=== PATIENT | male | born 1960 | race Caucasian/White ===

== ENCOUNTER 2024-07-21 12:23 | Outpatient (CLI) | payer BC, SELFPAY ==
--- NOTE | 2024-07-21 12:15 | RT.EKG_ITS ---
APPROVED REPORT Exam: Resting ECG Reason for Exam: Shortness of breath Patient Location: O HR:110 bpm ECG Measurements Heart Rate 110 AXIS DC [id number] P [id number] QRSd 93 QRS 267 QT 334 T [id number] QTc 452 Conclusion Atrial fibrillation.. Abnormal R-wave progression, late transition...QRS area<0 in V5/V6 Inferior infarct, old...Q >35mS, II III aVF Lateral leads are also involved...lat Q or ST-T abnormalities
== END 2024-07-21 12:24 | disposition home or self-care (01) ==
PROVIDERS: Visit Provider Physician Assistant
DX: R07.89 Other chest pain (principal); R06.02 Shortness of breath
CPT/HCPCS: 93010

== ENCOUNTER 2024-07-21 14:09 | Inpatient (IN) | payer BC, SELFPAY ==
[2024-07-21] VITALS (73 sets, daily range): BP systolic 116–163; BP diastolic 64–115; PULSE 55–158; RESP 10–37; TEMP 36.6–36.8; O2SAT 92–97
--- NOTE | 2024-07-21 14:00 | RT.EKG_ITS ---
APPROVED REPORT Exam: Resting ECG Reason for Exam: sob Patient Location: E HR:161 bpm ECG Measurements Heart Rate 161 AXIS KS [id number] P [id number] QRSd 76 QRS 261 QT 293 T 87 QTc 480 Conclusion Atrial fibrillation with rapid V-rate...A-rate 461 Inferior infarct, old...Q >35mS, II III aVF Consider anterior infarct...Q >30mS in V2-V5 Atrial fibrillation with rapid ventricular response and rate 161. Normal axis. No ST segment abnorm alities. T wave flattening diffusely. Low voltage. Compared to prior from today at urgent care T w ave inversions left chest wall leads have improved. Rate has increased. No acute injury pattern.
--- NOTE | 2024-07-21 14:20 | W.ED.GENAD ---
Discharge Plan Disposition Patient Disposition: Admit to [facility] Discharge Details Clinical Impression: Atrial fibrillation with RVR, Acute HFrEF (heart failure with reduced ejection fraction), Adrenal nodule Primary Care Provider: Unknown,Unknown ED Provider: Alok Lainez [employer] Meds and New Rx's Prescriptions: No Action ibuprofen 200 MG capsule 400 mg PO daily prn triamcinolone acetonide 15 GM cream 1 appful Topical BID PRNQty: 45 Rx Instructions: apply to inguinal rash BID prn but not longer than 3 days at a time sildenafil [Viagra] 100 mg tablet 100 mg PO DAILY MDD 100 PRN (Reason: sexual activity) Qty: 30 4RF aspirin 325 mg tablet 81 mg PO DAILY HPI General Date/Time Provider Initiated Documentation: 07/21/24 14:11. HPI Narrative: MDM This is a tachycardic but normothermic 64-year-old male with shortness of breath worsening over the past several months with A-fib RVR but no signs of acute heart failure for which patient will require echocardiogram D-dimer to assess for risk of PE and likely hospitalization. No pain out of proportion to suggest necrotizing soft tissue infection. Patient does have an elevated BMI and is certainly possible that he could have obstructive sleep apnea. Will place patient on a CIWA protocol given history of daily alcohol use which certainly makes him at increased risk for dilated cardiomyopathy. At bedside ultrasound his ejection fraction appears to be moderately reduced though interpretation is difficult secondary to his A-fib with RVR. He is relatively low risk for PE so obtain a D-dimer. I considered sepsis however the patient has not had any fevers productive cough dysuria or frequency so I did not obtain blood cultures treat empirically with IV antibiotics nor check a lactate. Patient denies black or bloody stools, suspicion for GI bleed is low however will obtain a CBC. No B symptoms such as unintentional weight loss night sweats to suggest increased risk for malignancy. Mild bilateral lower extremity pitting edema concerning for the possibility of acute heart failure. Will defer anticoagulation pending D-dimer results. No wheezes to suggest bronchoconstriction. No focal lung abnormalities to suggest pneumonia. PE is certainly a possibility. Dysrhythmia certainly possible. Will obtain troponin to assess for ACS. Not hypotensive to suggest tamponade. No positional component to suggest pericarditis. No clinical signs of SVC syndrome so did not feel the patient required a CT scan of his chest. No stridor to suggest anaphylaxis. No trauma to suggest pneumothorax. No recent salicylate use to suggest salicylate toxicity. No generator exposure to suggest carbon monoxide poisoning. 3:15 PM Reassuring initial troponin 41 ng/L. proBNP mildly elevated at 5400. CBC lacks anemia thrombocytopenia and leukocytosis. There is macrocytosis. Comprehensive metabolic panel showing mild LFT abnormalities. Mild hyperglycemia but no anion gap normal bicarbonate??not consistent with DKA. Normal renal function. Normal magnesium. 4:20 PM Patient was found on echocardiogram to have a reduced EF estimated to be approximately 31 to 33%. Given reduced EF which shortness of breath we will trial diuretics in the emergency department with 40 mg IV furosemide and reach out to the hospitalist team for hospitalization. Given A-fib with RVR will also provide 10 mg of diltiazem for rate control following CT scan. Will also treat with subcutaneous enoxaparin at 1 mg/kg given unknown onset of A-fib RVR. 4:40 PM I spoke with Dr. Squires from the hospitalist team who graciously agreed to accept patient for hospitalization. Patient does not need a nicardipine drip. Will push 1 dose of 10 mg diltiazem in the emergency department if the patient still has A-fib RVR. His rates were in the high teens to low 120s. 4:[address] angiogram of the patient's chest he had no evidence of PE nor aortic dissection. He did have small bilateral pleural effusions. He did have a left adrenal nodule about which I made him aware of radiology recommendation for nonemergent MRI which he will likely benefit from as an outpatient.Will give him oral metoprolol for rate control at 12.5 mg given that his rates are in the low 1 teens now. Chronic conditions affecting the care of the patient: Elevated BMI History obtained from an outside historian: N/A External record review: N/A Diagnostic interpretations performed by me: Per my independent interpretation chest x-ray shows: No acute cardiopulmonary process Per my independent interpretation EKG shows: Atrial fibrillation with rapid ventricular response and rate 161. Normal axis. No ST segment abnormalities. T wave flattening diffusely. Low voltage. Compared to prior from today at urgent care T wave inversions left chest wall leads have improved. Rate has increased. No acute injury pattern. ]Medications: N/A Social determinants of health affecting disposition: N/A Management discussed with: Hospitalist Treatment/interventions considered: N/A Response to therapies provided: N/A HPI This is a 64-year-old male with history of elevated BMI on 81 mg aspirin daily right emergency department via private vehicle in setting of shortness of breath for the past 6 months. Patient went to urgent care today was directed to the emergency department in setting of atrial fibrillation. Patient notes mild lower extremity swelling but no chest pain. No unintentional weight gain. No recent falls. Patient drinks 6 beers per day. He denies history of withdrawal but has not recently stopped drinking. No history of seizures or hospitalizations following alcohol. No fevers. No abdominal pain. Patient has a history of psoriasis. No weakness no headaches. Exam General: Well-appearing in no acute distress speaking in complete sentences. Head: Normocephalic, atraumatic. Eye: Extraocular eye movements intact. No conjunctival injection. No scleral icterus. Ear, nose, mouth, throat: Grossly normal inspection. Normal voice, handling secretions normally. Neck: Trachea midline. Cardiovascular: Well-perfused distal extremities. Rapid regular rate. Respiratory: Nonlabored respiration. Decreased left-sided breath sounds Gastrointestinal: Nondistended abdomen. Distended abdomen soft. Diastases recti. Musculoskeletal: No significant lower extremity pitting edema. Moving all 4 extremities spontaneously. Skin: Normal for age and race, grossly normal temperature and turgor. No acute rash. Neurologic: Alert and appropriate, no apparent acute deficits. GCS 15. Psychiatric: Mood and manner are appropriate. Grooming and personal hygiene are appropriate. Related Data Home Medications ?Medication ?Instructions ?Recorded ?Confirmed ibuprofen 200 mg capsule 400 mg PO daily prn 04/05/17 07/21/24 triamcinolone acetonide 0.1 % 1 appful topical BID PRN #45 grams 04/05/17 07/21/24 topical cream sildenafil 100 mg tablet (Viagra) 100 mg PO DAILY PRN sexual 02/26/20 07/21/24 activity #30 tab-caps aspirin 325 mg tablet 81 mg PO DAILY 07/21/24 07/21/24 Previous Rx's ?Medication ?Instructions ?Recorded sildenafil 100 mg tablet (Viagra) 100 mg PO DAILY PRN sexual 02/26/20 activity #30 tab-caps Allergies Allergy/AdvReac Type Severity Reaction Status Date / Time No Known Allergies Allergy Unverified 07/21/24 11:04 Medical Decision Making Quality:SDOH Health Related Social Needs: No Data to Display Critical Care Time Critical Care Time Critical Care Time: Yes Total Critical Care Time: 60 Attestation: A-fib RVR acute heart failure PFSH All Active Problems (Updated 07/21/24 @ 16:57 by Alok Lainez MD) Adrenal nodule (Acute) Acute HFrEF (heart failure with reduced ejection fraction) (Acute) Atrial fibrillation with RVR (Acute) Family History Mother No problems noted. Father Heart disease VALVE REPLACEMENT Sister Neoplasm CERVICAL Brother No problems noted. Brother No problems noted. Brother No problems noted. Brother No problems noted. Brother No problems noted. Social History Smoking risk assessment performed?: No Alcohol Intake: current Alcohol Intake frequency: 3 or more drinks per day Alcohol type: beer Drug use: Never Substance use type: does not use Do you feel safe at home: Yes Do you feel safe in your relationship?: Yes POCUS Exam (ED) Limited Cardiac Exam DATE OF EXAM: 07/21/24 TIME OF EXAM: 15:04 PROVIDER THAT PERFORMED THE STUDY: Alok Lainez IS THIS A REPEAT EXAM DURING THIS ENCOUNTER: no REASON FOR EXAM: Dyspnea VISUALIZED STRUCTURES: Four Chambers, Left ventricle, LVOT and Other structure: Lungs VIEW OBTAINED: Apical 4-Chamber, Parasternal long-axis and Subxiphoid PERTINENT FINDINGS/IMPRESSION: LV dysfunction; No pericardial effusion and No RV dilation DIFFERENTIAL DIAGNOSES: Aortic outflow track less than 4 cm, moderate squeeze, RV less than LV, no significant pericardial effusion. Several right-sided B-lines Exam complete
--- NOTE | 2024-07-21 14:30 | DI.RAD_ITS ---
Exam(s) XR PORTABLE CHEST AP EXAM: XR PORTABLE CHEST AP CLINICAL HISTORY: Shortness of breath TECHNIQUE: 2D digital imaging was performed. COMPARISON: No exams were available for comparison FINDINGS: Exam is limited by under penetration particularly at the lung bases. LUNGS: Clear. Left lung base not well seen. Some blunting at the left at costophrenic angle could in dicate small effusion. Mildly increased densities at the lung bases could represent atelectasis vers us infiltrates. HEART: Mildly enlarged. AORTA: Normal diameter. BONES: Unremarkable for age. Soft tissues: Unremarkable. IMPRESSION: Limited exam due to under penetration at the lung bases. There is a probable small left pleural effu giuseppe. Basilar infiltrates are not excluded. DATA REPOSITORY: RADIATION DOSE DELIVERED:
[2024-07-21 14:46] LABS: Abs Immature Grans 0.03 10^3/uL (0.0-0.06); Absolute Basophil Count 0.04 10^3/uL (0.0-0.2); Absolute Eosinophil Count 0.04 10^3/uL (0.0-0.7); Absolute Lymphocyte Count 1.34 10^3/uL (1.2-3.4); Absolute Monocyte Count 0.61 10^3/uL (0.1-0.8); Absolute Neutrophil Count 6.21 10^3/uL (1.2-6.7); Basophils % 0.5 %; Eosinophils % 0.5 %; HCT 46.7 % (40.0-50.0); HGB 15.8 g/dL (13.5-17.5); Immature Grans % 0.4 %; Lymphocytes % 16.2 %; MCH 33.2 pg (27.0-33.0); MCHC 33.8 % (32.0-36.0); MCV 98 fL (80-95); MPV 8.4 fL (8.0-11.0); Monocytes % 7.4 %; Platelet Count 248 10^3/uL (130-400); RBC 4.76 10^6/uL (4.36-5.78); RDW-SD 46.5 fL; WBC 8.27 10^3/uL (4.4-10.8)
[2024-07-21 15:11] LABS: ALT 70 U/L (16-63); AST 41 U/L (15-37); Albumin 3.3 g/dL (3.4-5.0); Alkaline Phosphatase 97 U/L (46-116); Anion Gap 9.8 mmol/L (3-11); BUN 15 mg/dL (7-18); Bilirubin, Total 1.07 mg/dL (0.2-1.0); CO2 25.2 mmol/L (21.0-32.0); Calcium 9.3 mg/dL (8.5-10.1); Chloride 104 mmol/L (98-107); Glucose 162 mg/dL (74-106); Magnesium 2.1 mg/dL (1.8-2.4); NT-proBNP 5407 pg/mL (<300); Potassium 3.8 mmol/L (3.5-5.1); Sodium 139 mmol/L (136-145); Total Protein 7.6 g/dL (6.4-8.2); Troponin I 41 ng/L (<or=76)
[2024-07-21 15:26] LABS: D-Dimer 1867 ng/mlFEU (<500)
[2024-07-21 15:47] LABS: Source Nasal/Nares
[2024-07-21] MEDS: Normal Saline - Diluent 50 ML VIAL IJ (16:30)
[2024-07-21] MEDS: Omnipaque 350 MG/ML 100 ML BTL IJ (16:31)
--- NOTE | 2024-07-21 16:33 | DI.CT_ITS ---
Exam(s) CT CHEST PE CTA EXAM: CT CHEST PE CTA CLINICAL HISTORY: sob. TECHNIQUE: Imaging Protocol: Axial CT angiography was performed with multi-slice acquisition and mu lti-planar and/or 3D reconstructions. CONTRAST MATERIAL: Intravenous: Omnipaque 350 contrast volume:100 mL COMPARISON: CR XR PORTABLE CHEST AP from 07/21/2024 FINDINGS: Tracheobronchial tree: Patent where visualized. No bronchiectasis. Pulmonary parenchyma: There is atelectasis seen in the lung bases. No focal consolidating infiltrate s are seen. No architectural distortion. Pulmonary Arteries: No evidence of filling defect to suggest pulmonary emboli. Mediastinum and Ada: No dominant adenopathy or fluid collection. The esophagus is unremarkable. Visualized thyroid gland: Unremarkable. Pleura: There are small bilateral pleural effusions, right greater than left. No pneumothorax is pre sent. Heart: Mild cardiomegaly. No coronary artery calcifications are seen. No pericardial effusion. No e vidence of right heart strain. Aorta: Thoracic aorta non-dilated. Due to the timing of the bolus, the thoracic aorta is not well opa cified. Atherosclerotic calcification is present. Upper abdomen: There is a small amount of abdominal ascites. There is a 2.5 x 3.3 cm left adrenal n odule. Soft tissues: Unremarkable. Bones: Within normal limits for the patient's age. IMPRESSION: 1. No evidence of a pulmonary embolism or thoracic aortic aneurysm. 2. Small bilateral pleural effusions, right greater than left. 3. Bilateral basilar atelectasis. 4. 2.5 x 3.3 cm left adrenal nodule. Nonemergent follow-up MRI of the adrenal gland without and with contrast is recommended for further evaluation. 5. Small amount of abdominal ascites. Unexpected findings RADIATION DOSE DELIVERED: 122.22mGy.cm Total DLP DATA REPOSITORY: All CT scans at this facility are submitted to the National Radiology Data Registry (NRDR) Dose Index Registry (DIR) with the [employer] (A[employer]). RADIATION OPTIMIZATION: All CT scans at this facility use at least one of these dose optimization te chniques: automated exposure control; mA and/or kV adjustment per patient size (includes targeted exa ms where dose is matched to clinical indication); or iterative reconstruction.
[2024-07-21 16:38] LABS: COVID-19 PCR Negative (Negative)
[2024-07-21] MEDS: Enoxaparin 100 MG/ML SYR SC (16:44)
[2024-07-21] MEDS: Furosemide 40 MG/4 ML VIAL IVP (16:45)
[2024-07-21] MEDS: Metoprolol 12.5 MG TAB PO (16:49)
--- NOTE | 2024-07-21 17:54 | W.PC.ACHO ---
Registration Status: Primary Language: Preferred Language: ED Information & Data Chief Complaint SOB 07/21/24 14:41 Chief Complaint SOB 07/21/24 14:12 Triage Note patient with sob for 6 mths, 07/21/24 14:12 seen at urgent care today for same and was told he was in afib. no cp. states his ankles are slightly swollen. Most Recent Vital Signs Temperature 36.7 C 07/21/24 14:41 Temperature Source Oral 07/21/24 14:41 Pulse 71 07/21/24 17:39 Pulse 116 H 07/21/24 17:40 Respiratory Rate 27 H 07/21/24 17:40 Respiratory Effort Short of Breath, Labored 07/21/24 14:41 Respiratory Depth Shallow 07/21/24 14:41 Respiratory Pattern Tachypnea 07/21/24 15:05 Blood Pressure 137/99 H 07/21/24 17:39 Blood Pressure Mean 112 07/21/24 17:39 Blood Pressure Position Sitting 07/21/24 14:12 Pulse Oximetry 94 07/21/24 17:40 Oxygen Delivery Method Room Air 07/21/24 14:41 Oxygen Flow Rate 0 07/21/24 14:12 Pain Level 0 07/21/24 14:41 Allergies No Known Allergies Allergy (Unverified 07/21/24 11:04) Active Medications Generic Name Dose Route Start Last Admin Trade Name Yannickq PRN Reason Stop Dose Admin Iohexol 100 ml 07/21/24 16:45 07/21/24 16:31 Omnipaque 350 Mg/Ml 100 Ml Btl IJ 08/20/24 23:59 100 ml DIRECTED LINDA Administration Sodium Chloride 50 ml 07/21/24 16:30 07/21/24 16:30 Normal Saline - Diluent 50 Ml Vial IJ 50 ml .FOR DI USE LINDA Administration Diet Orders Category Date Time Status Heart Healthy Eating [DIET] Nutrition 07/21/24 Dinner Active Diagnostics 07/21/24 07/21/24 07/21/24 Range/Units 17:38 15:38 15:30 WBC (4.4-10.8) 10^3/uL RBC (4.36-5.78) 10^6/uL Hgb (13.5-17.5) g/dL Hct (40.0-50.0) % MCV (80-95) fL MCH (27.0-33.0) pg MCHC (32.0-36.0) % RDW (11.8-14.1) % Plt Count (130-400) 10^3/uL MPV (8.0-11.0) fL Immature Gran % % Neutrophils % % Lymphocytes % % Monocytes % % Eosinophils % % Basophils % % Nucleated RBC % (0.0-0.3) % Absolute Neutrophils (1.2-6.7) 10^3/uL Absolute Lymphocytes (1.2-3.4) 10^3/uL Absolute Monocytes (0.1-0.8) 10^3/uL Absolute Eosinophils (0.0-0.7) 10^3/uL Absolute Basophils (0.0-0.2) 10^3/uL D-Dimer (<500) ng/mlFEU Sodium Potassium Chloride Carbon Dioxide Anion Gap BUN Creatinine Est GFR (CKD-EPI 2020) Glucose Calcium Magnesium Total Bilirubin AST ALT Alkaline Phosphatase Troponin I Pending Cancelled (<or=76) ng/L NT-Pro-B Natriuret Pep (<300) pg/mL Total Protein Albumin COVID-19 Source Nasal/Nares SARS-CoV-2 (PCR) Negative (Negative) 07/21/24 07/21/24 07/21/24 Range/Units 14:36 14:36 14:36 WBC (4.4-10.8) 10^3/uL RBC (4.36-5.78) 10^6/uL Hgb (13.5-17.5) g/dL Hct (40.0-50.0) % MCV (80-95) fL MCH (27.0-33.0) pg MCHC (32.0-36.0) % RDW (11.8-14.1) % Plt Count (130-400) 10^3/uL MPV (8.0-11.0) fL Immature Gran % % Neutrophils % % Lymphocytes % % Monocytes % % Eosinophils % % Basophils % % Nucleated RBC % (0.0-0.3) % Absolute Neutrophils (1.2-6.7) 10^3/uL Absolute Lymphocytes (1.2-3.4) 10^3/uL Absolute Monocytes (0.1-0.8) 10^3/uL Absolute Eosinophils (0.0-0.7) 10^3/uL Absolute Basophils (0.0-0.2) 10^3/uL D-Dimer (<500) ng/mlFEU Sodium Potassium Chloride Carbon Dioxide Anion Gap BUN Creatinine Est GFR (CKD-EPI 2020) Glucose Calcium Magnesium Total Bilirubin AST ALT Alkaline Phosphatase 97 Troponin I 41 (<or=76) ng/L NT-Pro-B Natriuret Pep 5407 H (<300) pg/mL Total Protein 7.6 Cancelled Albumin 3.3 L Cancelled COVID-19 Source SARS-CoV-2 (PCR) (Negative) 07/21/24 07/21/24 07/21/24 Range/Units 14:36 14:36 14:36 WBC (4.4-10.8) 10^3/uL RBC (4.36-5.78) 10^6/uL Hgb (13.5-17.5) g/dL Hct (40.0-50.0) % MCV (80-95) fL MCH (27.0-33.0) pg MCHC (32.0-36.0) % RDW (11.8-14.1) % Plt Count (130-400) 10^3/uL MPV (8.0-11.0) fL Immature Gran % % Neutrophils % % Lymphocytes % % Monocytes % % Eosinophils % % Basophils % % Nucleated RBC % (0.0-0.3) % Absolute Neutrophils (1.2-6.7) 10^3/uL Absolute Lymphocytes (1.2-3.4) 10^3/uL Absolute Monocytes (0.1-0.8) 10^3/uL Absolute Eosinophils (0.0-0.7) 10^3/uL Absolute Basophils (0.0-0.2) 10^3/uL D-Dimer (<500) ng/mlFEU Sodium Potassium Chloride Carbon Dioxide Anion Gap BUN Creatinine Est GFR (CKD-EPI 2020) Glucose Calcium Magnesium Total Bilirubin 1.07 H AST 41 H Cancelled ALT 70 H Cancelled Alkaline Phosphatase Cancelled Troponin I (<or=76) ng/L NT-Pro-B Natriuret Pep (<300) pg/mL Total Protein Albumin COVID-19 Source SARS-CoV-2 (PCR) (Negative) 07/21/24 07/21/24 07/21/24 Range/Units 14:36 14:36 14:36 WBC (4.4-10.8) 10^3/uL RBC (4.36-5.78) 10^6/uL Hgb (13.5-17.5) g/dL Hct (40.0-50.0) % MCV (80-95) fL MCH (27.0-33.0) pg MCHC (32.0-36.0) % RDW (11.8-14.1) % Plt Count (130-400) 10^3/uL MPV (8.0-11.0) fL Immature Gran % % Neutrophils % % Lymphocytes % % Monocytes % % Eosinophils % % Basophils % % Nucleated RBC % (0.0-0.3) % Absolute Neutrophils (1.2-6.7) 10^3/uL Absolute Lymphocytes (1.2-3.4) 10^3/uL Absolute Monocytes (0.1-0.8) 10^3/uL Absolute Eosinophils (0.0-0.7) 10^3/uL Absolute Basophils (0.0-0.2) 10^3/uL D-Dimer (<500) ng/mlFEU Sodium Potassium Chloride Carbon Dioxide Anion Gap BUN Creatinine Est GFR (CKD-EPI 2020) Glucose 162 H Calcium 9.3 Cancelled Magnesium 2.1 Cancelled Total Bilirubin Cancelled AST ALT Alkaline Phosphatase Troponin I (<or=76) ng/L NT-Pro-B Natriuret Pep (<300) pg/mL Total Protein Albumin COVID-19 Source SARS-CoV-2 (PCR) (Negative) 07/21/24 07/21/24 07/21/24 Range/Units 14:36 14:36 14:36 WBC (4.4-10.8) 10^3/uL RBC (4.36-5.78) 10^6/uL Hgb (13.5-17.5) g/dL Hct (40.0-50.0) % MCV (80-95) fL MCH (27.0-33.0) pg MCHC (32.0-36.0) % RDW (11.8-14.1) % Plt Count (130-400) 10^3/uL MPV (8.0-11.0) fL Immature Gran % % Neutrophils % % Lymphocytes % % Monocytes % % Eosinophils % % Basophils % % Nucleated RBC % (0.0-0.3) % Absolute Neutrophils (1.2-6.7) 10^3/uL Absolute Lymphocytes (1.2-3.4) 10^3/uL Absolute Monocytes (0.1-0.8) 10^3/uL Absolute Eosinophils (0.0-0.7) 10^3/uL Absolute Basophils (0.0-0.2) 10^3/uL D-Dimer (<500) ng/mlFEU Sodium Potassium Chloride Carbon Dioxide Anion Gap BUN 15 Creatinine 1.0 Cancelled Est GFR (CKD-EPI 2020) 85.10 Cancelled Glucose Cancelled Calcium Magnesium Total Bilirubin AST ALT Alkaline Phosphatase Troponin I (<or=76) ng/L NT-Pro-B Natriuret Pep (<300) pg/mL Total Protein Albumin COVID-19 Source SARS-CoV-2 (PCR) (Negative) 07/21/24 07/21/24 07/21/24 Range/Units 14:36 14:36 14:36 WBC (4.4-10.8) 10^3/uL RBC (4.36-5.78) 10^6/uL Hgb (13.5-17.5) g/dL Hct (40.0-50.0) % MCV (80-95) fL MCH (27.0-33.0) pg MCHC (32.0-36.0) % RDW (11.8-14.1) % Plt Count (130-400) 10^3/uL MPV (8.0-11.0) fL Immature Gran % % Neutrophils % % Lymphocytes % % Monocytes % % Eosinophils % % Basophils % % Nucleated RBC % (0.0-0.3) % Absolute Neutrophils (1.2-6.7) 10^3/uL Absolute Lymphocytes (1.2-3.4) 10^3/uL Absolute Monocytes (0.1-0.8) 10^3/uL Absolute Eosinophils (0.0-0.7) 10^3/uL Absolute Basophils (0.0-0.2) 10^3/uL D-Dimer (<500) ng/mlFEU Sodium Potassium Chloride 104 Carbon Dioxide 25.2 Cancelled Anion Gap 9.8 Cancelled BUN Cancelled Creatinine Est GFR (CKD-EPI 2020) Glucose Calcium Magnesium Total Bilirubin AST ALT Alkaline Phosphatase Troponin I (<or=76) ng/L NT-Pro-B Natriuret Pep (<300) pg/mL Total Protein Albumin COVID-19 Source SARS-CoV-2 (PCR) (Negative) 07/21/24 07/21/24 07/21/24 Range/Units 14:36 14:36 14:36 WBC 8.27 (4.4-10.8) 10^3/uL RBC 4.76 (4.36-5.78) 10^6/uL Hgb 15.8 (13.5-17.5) g/dL Hct 46.7 (40.0-50.0) % MCV 98 H (80-95) fL MCH 33.2 H (27.0-33.0) pg MCHC 33.8 (32.0-36.0) % RDW 13.0 (11.8-14.1) % Plt Count 248 (130-400) 10^3/uL MPV 8.4 (8.0-11.0) fL Immature Gran % 0.4 % Neutrophils % 75.0 % Lymphocytes % 16.2 % Monocytes % 7.4 % Eosinophils % 0.5 % Basophils % 0.5 % Nucleated RBC % 0.0 (0.0-0.3) % Absolute Neutrophils 6.21 (1.2-6.7) 10^3/uL Absolute Lymphocytes 1.34 (1.2-3.4) 10^3/uL Absolute Monocytes 0.61 (0.1-0.8) 10^3/uL Absolute Eosinophils 0.04 (0.0-0.7) 10^3/uL Absolute Basophils 0.04 (0.0-0.2) 10^3/uL D-Dimer 1867 H (<500) ng/mlFEU Sodium 139 Cancelled Potassium 3.8 Cancelled Chloride Cancelled Carbon Dioxide Anion Gap BUN Creatinine Est GFR (CKD-EPI 2020) Glucose Calcium Magnesium Total Bilirubin AST ALT Alkaline Phosphatase Troponin I (<or=76) ng/L NT-Pro-B Natriuret Pep (<300) pg/mL Total Protein Albumin COVID-19 Source SARS-CoV-2 (PCR) (Negative) Intake and Output - 24 Hour Total 07/21/24 14:08 thru 07/21/24 17:42 Output Total 1350 Balance -1350 Weight 105.35 kg Output: Urine 1350 Falls Risk Assessment History of Falls No History 07/21/24 14:41 Contributing Factors No Factors 07/21/24 14:41 Ambulatory Aids Independent 07/21/24 14:41 Tubes/Lines None 07/21/24 14:41 Gait Evaluation No gait disturbance 07/21/24 14:41 Cognition No cognitive impairment 07/21/24 14:41 Fall Total Score 0 07/21/24 14:41 Level of Risk Standard/Low Risk 07/21/24 14:41 v v v v v v v v v Sending and/or Receiving Nurses: Please use comment section below to note any information pertinent to the patient hand-off not included above. Information / Comments: Report received from: Leena 2+ lt edema 1350 urine out 12.5 metop po lasiz 40 up indep urinal new onset afib?
[2024-07-21 18:10] LABS: Troponin I 43 ng/L (<or=76)
[2024-07-21] MEDS: MULTIVITAMIN 10 ML, THIAMINE 100 MG, FOLIC ACID 1 MG in DEXTROSE 5%-0.45% SALINE 1,000 ML 42 ML IV (18:43)
--- NOTE | 2024-07-21 19:16 | W.PM.HP.N ---
Date of service: 07/21/24 Time of Service: 17:15 Assessment and Plan Assessment and plan (1) Acute HFrEF (heart failure with reduced ejection fraction): Status: Acute Assessment and plan: Continue diuresis Await echocardiogram final read (2) Atrial fibrillation with RVR: Status: Acute Assessment and plan: Heart rate is not well-controlled with the oral metoprolol Will start diltiazem drip. Transferred patient to the intensive care unit for close monitoring and continue cardiac monitoring (3) Alcohol abuse: Status: Chronic Assessment and plan: CIWA scoring per protocol Benzodiazepine alcohol withdrawal protocol enacted Patient is concerned he may have trouble since he has not gone without a generous amount of alcohol in a very long time. Patient is placed on supplemental vitamins via IV infusion Will continue on oral folate supplementation and B complex. (4) Poor dentition: Status: Acute Assessment and plan: Discussed with patient Recommend outpatient dental evaluation as dental and gum health is associated with heart health (5) Umbilical hernia without obstruction and without gangrene: Status: Acute Assessment and plan: Surgical evaluation as an outpatient. No urgency at this time. (6) Morbid obesity: Status: Acute Assessment and plan: Patient may possibly have sleep apnea which may be contributing to caloric intake (7) Bilateral leg edema: Status: Acute Assessment and plan: Continue diuresis Patient will remain at bedrest edema may worsen Continue DVT prophylaxis with once daily low molecular weight heparin (8) On deep vein thrombosis (DVT) prophylaxis: Status: Acute Assessment and plan: Low molecular weight heparin once daily (9) Hyperglycemia: Status: Acute Assessment and plan: Will check hemoglobin A1c to evaluate for occult diabetes (10) Elevated d-dimer: Status: Acute Assessment and plan: CT pulmonary angiogram was negative for signs of pulmonary emboli. (11) Adrenal nodule: Status: Acute Assessment and plan: Plan for evaluation as outpatient with possible MRI and appropriate consultation History of Present Illness History of Present Illness Chief Complaint: breathlessness Narrative: Patient is a 64-year-old male who was not seen in physician in over 10 years by his report. He has been experiencing progressive breathlessness over the past month and states that today, he was unable to even tie his shoes without losing his breath. He is unable to walk any length of distance without having to stop to catch his breath. He denies any fevers or chills or productive sputum. This morning, he felt he could not go to work and he came to the emergency department. Emergency department, he was evaluated and found to have atrial fibrillation with rapid ventricular response. Was not uncommon for his heart rate to rise up into the 160s to 180s. If he stands up or moves or exerts himself, his heart rate increases. He was given oral metoprolol in the emergency department. This did not seem to have an effect on his heart rate after about 2 hours post dosing of the oral metoprolol. He was given intravenous Lasix 40 mg and experienced a significant diuresis. This did not symptomatically improve his dyspnea however. He is concerned because every day he does not work he does not earn. 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 He does minimal amount of walking during this work. He frequently drives 1 hour to 2-1/2 hours for his job. Recently, he has been working in [place]. He takes no outpatient medications at this time and he does not do illicit drugs. He does not smoke. He drinks a sixpack of Souza light every night. That is his routine. Every single night for as long as he can remember. He lives alone. He has no pets. He has not traveled anywhere recently other than for work. He has not received COVID vaccination in the past and he has not knowingly had COVID. He thinks possibly he might of had COVID about a year ago because he says that his general health diminished greatly after he became sick a year ago. He has no known drug allergies. His surgical history is remarkable for bilateral inguinal hernia repairs, on 1 side he had a second repair. He has a do not know if mesh was involved. He also reports he has a new periumbilical hernia anteriorly. Past medical history is denied. He previously had been on ED medications. He has not had blood work in a long time, he has not seen a doctor in over 10 years. Family history his father had coronary artery disease and he had coronary artery bypass surgery twice dying from what was presumed to be a cerebral aneurysm after the second surgery at age 69 his mother is alive at age 88 and lives in [place] where the patient is originally from. He does not have an advanced directive The patient would like to be a full resuscitative effort should anything occur. Review of Systems Narrative: A 14 point review of systems was performed and negative except as noted below and in the HPI. All systems reviewed & are unremarkable except as noted in HPI and below PFSH All Active Problems (Updated 07/21/24 @ 19:34 by Jn Squires DO) Elevated d-dimer (Acute) Hyperglycemia (Acute) On deep vein thrombosis (DVT) prophylaxis (Acute) Bilateral leg edema (Acute) Morbid obesity (Acute) Umbilical hernia without obstruction and without gangrene (Acute) Poor dentition (Acute) Alcohol abuse (Chronic) Adrenal nodule (Acute) Acute HFrEF (heart failure with reduced ejection fraction) (Acute) Atrial fibrillation with RVR (Acute) Family History Mother No problems noted. Father Heart disease VALVE REPLACEMENT Sister Neoplasm CERVICAL Brother No problems noted. Brother No problems noted. Brother No problems noted. Brother No problems noted. Brother No problems noted. Social History Smoking risk assessment performed?: No Alcohol Intake: current Alcohol Intake frequency: 3 or more drinks per day Alcohol type: beer Drug use: Never Substance use type: does not use Do you feel safe at home: Yes Do you feel safe in your relationship?: Yes Meds Allergies and Home Medications Allergies Allergy/AdvReac Type Severity Reaction Status Date / Time No Known Allergies Allergy Unverified 07/21/24 11:04 Home Medications ?Medication ?Instructions ?Recorded ?Confirmed ?Type ibuprofen 200 mg capsule 400 mg PO daily prn 04/05/17 07/21/24 History triamcinolone acetonide 0.1 % 1 appful topical BID PRN #45 grams 04/05/17 07/21/24 History topical cream sildenafil 100 mg tablet (Viagra) 100 mg PO DAILY PRN sexual 02/26/20 07/21/24 Rx activity #30 tab-caps aspirin 325 mg tablet 81 mg PO DAILY 07/21/24 07/21/24 History Exam Narrative Exam Narrative: Patient is alert and oriented x 3 and in no acute distress HEENT: Neck supple, MM pink and moist, conjunctiva non-injected, sclera non-icteric, Pupils equal and reactive to light symmetrically, no JVD, no A waves. No thyromegaly. No carotid bruit. Patient is missing his maxillary incisors and canine teeth. He has multiple molars with active caries at this time. He has a small posterior airway possibly class III-IV CHEST: Bilaterally symmetrical with inspiration and expiration. No use of accessory muscles of respiration. No nasal flaring. RESP: Distant breath sounds secondary to body habitus, bilateral bibasilar crackles noted no rhonchi or wheeze, no pleural friction rub, no post-tussive crackles or apical rales. COR: Distant tones and difficult to appreciate, RRR without murmur, normal S1, S2, no rub or gallop ABDOMEN: Obese grossly distended and mildly tympanitic, no peritoneal signs. Bowel sounds are active diffusely. There is a periumbilical defect which is easily reducible. Organomegaly cannot be defined due to body habitus, No abdominal bruit, no masses, no tenderness on deep abdominal palpation. G/U: deferred Rectal: deferred MUSCULOSKELETAL: Bilaterally symmetrical, no muscle belly tenderness or mass DERMIS: Skin warm and dry, no ulcers or rashes, EXTREMITIES: No cyanosis, clubbing but 3+ pitting edema in the lower extremity bilaterally. NEUROLOGICAL: Cranial nerves intact II-XII without notable deficit, No peripheral neurosensory or motor deficits noted. LYMPH: No anterior or posterior cervical, no supraclavicular, No axillary, no epitrochlear or femoral lymphadenopathy. Results Imaging CT scan - chest: image reviewed CT scan - pelvis: image reviewed Additional studies: CTPA unremarkable for pulmonary emboli, adrenal nodule noted Cardiac echo obtained, results pending EKG: image reviewed Labs 07/21/24 14:36 07/21/24 14:36 Labs: Laboratory Results - last 24 hr 07/21/24 07/21/24 07/21/24 14:36 14:36 14:36 WBC 8.27 RBC 4.76 Hgb 15.8 Hct 46.7 MCV 98 H MCH 33.2 H MCHC 33.8 RDW 13.0 Plt Count 248 MPV 8.4 Immature Gran % 0.4 Neutrophils % 75.0 Lymphocytes % 16.2 Monocytes % 7.4 Eosinophils % 0.5 Basophils % 0.5 Nucleated RBC % 0.0 Absolute Neutrophils 6.21 Absolute Lymphocytes 1.34 Absolute Monocytes 0.61 Absolute Eosinophils 0.04 Absolute Basophils 0.04 D-Dimer 1867 H Sodium Cancelled 139 Potassium Cancelled 3.8 Chloride Cancelled Carbon Dioxide Anion Gap BUN Creatinine Est GFR (CKD-EPI 2020) Glucose Calcium Magnesium Total Bilirubin AST ALT Alkaline Phosphatase Troponin I NT-Pro-B Natriuret Pep Total Protein Albumin COVID-19 Source SARS-CoV-2 (PCR) 07/21/24 07/21/24 07/21/24 14:36 14:36 14:36 WBC RBC Hgb Hct MCV MCH MCHC RDW Plt Count MPV Immature Gran % Neutrophils % Lymphocytes % Monocytes % Eosinophils % Basophils % Nucleated RBC % Absolute Neutrophils Absolute Lymphocytes Absolute Monocytes Absolute Eosinophils Absolute Basophils D-Dimer Sodium Potassium Chloride 104 Carbon Dioxide Cancelled 25.2 Anion Gap Cancelled 9.8 BUN Cancelled Creatinine Est GFR (CKD-EPI 2020) Glucose Calcium Magnesium Total Bilirubin AST ALT Alkaline Phosphatase Troponin I NT-Pro-B Natriuret Pep Total Protein Albumin COVID-19 Source SARS-CoV-2 (PCR) 07/21/24 07/21/24 07/21/24 14:36 14:36 14:36 WBC RBC Hgb Hct MCV MCH MCHC RDW Plt Count MPV Immature Gran % Neutrophils % Lymphocytes % Monocytes % Eosinophils % Basophils % Nucleated RBC % Absolute Neutrophils Absolute Lymphocytes Absolute Monocytes Absolute Eosinophils Absolute Basophils D-Dimer Sodium Potassium Chloride Carbon Dioxide Anion Gap BUN 15 Creatinine Cancelled 1.0 Est GFR (CKD-EPI 2020) Cancelled 85.10 Glucose Cancelled Calcium Magnesium Total Bilirubin AST ALT Alkaline Phosphatase Troponin I NT-Pro-B Natriuret Pep Total Protein Albumin COVID-19 Source SARS-CoV-2 (PCR) 07/21/24 07/21/24 07/21/24 14:36 14:36 14:36 WBC RBC Hgb Hct MCV MCH MCHC RDW Plt Count MPV Immature Gran % Neutrophils % Lymphocytes % Monocytes % Eosinophils % Basophils % Nucleated RBC % Absolute Neutrophils Absolute Lymphocytes Absolute Monocytes Absolute Eosinophils Absolute Basophils D-Dimer Sodium Potassium Chloride Carbon Dioxide Anion Gap BUN Creatinine Est GFR (CKD-EPI 2020) Glucose 162 H Calcium Cancelled 9.3 Magnesium Cancelled 2.1 Total Bilirubin Cancelled AST ALT Alkaline Phosphatase Troponin I NT-Pro-B Natriuret Pep Total Protein Albumin COVID-19 Source SARS-CoV-2 (PCR) 07/21/24 07/21/24 07/21/24 14:36 14:36 14:36 WBC RBC Hgb Hct MCV MCH MCHC RDW Plt Count MPV Immature Gran % Neutrophils % Lymphocytes % Monocytes % Eosinophils % Basophils % Nucleated RBC % Absolute Neutrophils Absolute Lymphocytes Absolute Monocytes Absolute Eosinophils Absolute Basophils D-Dimer Sodium Potassium Chloride Carbon Dioxide Anion Gap BUN Creatinine Est GFR (CKD-EPI 2020) Glucose Calcium Magnesium Total Bilirubin 1.07 H AST Cancelled 41 H ALT Cancelled 70 H Alkaline Phosphatase Cancelled Troponin I NT-Pro-B Natriuret Pep Total Protein Albumin COVID-19 Source SARS-CoV-2 (PCR) 07/21/24 07/21/24 07/21/24 14:36 14:36 14:36 WBC RBC Hgb Hct MCV MCH MCHC RDW Plt Count MPV Immature Gran % Neutrophils % Lymphocytes % Monocytes % Eosinophils % Basophils % Nucleated RBC % Absolute Neutrophils Absolute Lymphocytes Absolute Monocytes Absolute Eosinophils Absolute Basophils D-Dimer Sodium Potassium Chloride Carbon Dioxide Anion Gap BUN Creatinine Est GFR (CKD-EPI 2020) Glucose Calcium Magnesium Total Bilirubin AST ALT Alkaline Phosphatase 97 Troponin I 41 NT-Pro-B Natriuret Pep 5407 H Total Protein Cancelled 7.6 Albumin Cancelled 3.3 L COVID-19 Source SARS-CoV-2 (PCR) 07/21/24 07/21/24 07/21/24 15:30 15:38 17:38 WBC RBC Hgb Hct MCV MCH MCHC RDW Plt Count MPV Immature Gran % Neutrophils % Lymphocytes % Monocytes % Eosinophils % Basophils % Nucleated RBC % Absolute Neutrophils Absolute Lymphocytes Absolute Monocytes Absolute Eosinophils Absolute Basophils D-Dimer Sodium Potassium Chloride Carbon Dioxide Anion Gap BUN Creatinine Est GFR (CKD-EPI 2020) Glucose Calcium Magnesium Total Bilirubin AST ALT Alkaline Phosphatase Troponin I Cancelled 43 NT-Pro-B Natriuret Pep Total Protein Albumin COVID-19 Source Nasal/Nares SARS-CoV-2 (PCR) Negative Last Vital Signs Temp 36.7 C 07/21/24 14:41 Pulse 64 07/21/24 18:19 Resp 19 07/21/24 18:50 BP 128/94 H 07/21/24 18:19 Pulse Ox 92 07/21/24 18:50 Time Spent Time spent with Patient: 55-74 minutes Time was spent: preparing to see the patient(eg.review tests), obtaining and/or reviewing separately otained hiistory, ordering medications,tests, procedures, referring, communicating with other health skin care therapist, counseling the patient and care coordination
[2024-07-21] MEDS: dilTIAZem 125 MG in Normal Saline 100 ML IV (19:30)
[2024-07-21 20:23] LABS: Hemoglobin A1C 5.8 % (<5.7)
[2024-07-21] MEDS: Miconazole 2% Topical Powder 85 GM BTL TP (20:36)
[2024-07-21] MEDS: Normal Saline Flush 10 ML SYR IVP (20:37)
[2024-07-21 20:40] LABS: Folate > 20.0 ng/mL (8.6-20.0)
--- NOTE | 2024-07-21 21:00 | NUR.NOTE ---
Nursing Note: Pt 20 beats of regular VT or narrow SVT, asymptomatic, pt on cardizem gtt at 5mg/hr , pt lying in bed, states feels fine, Dr. Zhang made aware, no orders given.
--- NOTE | 2024-07-21 21:46 | NUR.NOTE ---
Nursing Note: Vicente Rashid in to evaluate pt's rhythm strip, statespt had svt with aberrancy, no orders given.
[2024-07-22] VITALS (145 sets, daily range): BP systolic 103–163; BP diastolic 80–143; PULSE 50–148; RESP 4–36; TEMP 36.5–37; O2SAT 84–97
--- NOTE | 2024-07-22 03:00 | NUR.NOTE ---
Nursing Note: Pt complaining of right leg cramp pain 02/27, spoke to Dr Zhang, updated on pt's condition, orders given for tylenol. pt medicated, will monitor
[2024-07-22] MEDS: Acetaminophen 325 MG TAB 650 MG PO (03:01)
[2024-07-22 06:09] LABS: Abs Immature Grans 0.03 10^3/uL (0.0-0.06); Absolute Basophil Count 0.05 10^3/uL (0.0-0.2); Absolute Lymphocyte Count 1.63 10^3/uL (1.2-3.4); Absolute Monocyte Count 0.79 10^3/uL (0.1-0.8); Absolute Neutrophil Count 4.77 10^3/uL (1.2-6.7); Basophils % 0.7 %; Eosinophils % 1.4 %; HCT 44.9 % (40.0-50.0); HGB 14.9 g/dL (13.5-17.5); Immature Grans % 0.4 %; Lymphocytes % 22.1 %; MCH 33.3 pg (27.0-33.0); MCHC 33.2 % (32.0-36.0); MCV 100 fL (80-95); MPV 8.6 fL (8.0-11.0); Monocytes % 10.7 %; Neutrophils % 64.7 %; Platelet Count 221 10^3/uL (130-400); RBC 4.48 10^6/uL (4.36-5.78); RDW 13.3 % (11.8-14.1); RDW-SD 49.3 fL; WBC 7.37 10^3/uL (4.4-10.8)
[2024-07-22 06:26] LABS: ALT 51 U/L (16-63); AST 29 U/L (15-37); Albumin 2.9 g/dL (3.4-5.0); Alkaline Phosphatase 89 U/L (46-116); Anion Gap 7.6 mmol/L (3-11); BUN 19 mg/dL (7-18); Bilirubin, Total 0.74 mg/dL (0.2-1.0); CO2 26.4 mmol/L (21.0-32.0); Calcium 8.5 mg/dL (8.5-10.1); Chloride 106 mmol/L (98-107); Glucose 109 mg/dL (74-106); Potassium 3.9 mmol/L (3.5-5.1); Sodium 140 mmol/L (136-145); Total Protein 6.6 g/dL (6.4-8.2)
--- NOTE | 2024-07-22 07:13 | W.PM.PROGNOT ---
Date of Service Date of service: 07/22/24 Time of Service: 07:14 Assessment and Plan Assessment and plan (1) Acute HFrEF (heart failure with reduced ejection fraction): Status: Acute Assessment and plan: Continue diuresis Replace k+ and M++ Continue cardiac monitoring Echocardiogram final read reveals no valvular disease but global hypokinesis. There is not focal hypokinesis but rather global. (2) Atrial fibrillation with RVR: Status: Acute Assessment and plan: Ddiltiazem drip was stopped early this morning when the patient's heart rate settled in the 90s. When the patient sits up in bed or stands up, his heart rate will go up in the 150s.. He had a 20 beat run of a rhythm that appeared to stimulate V. tach but is likely an aberrant reentry mechanism. He had a similar limited run later in the afternoon. Potassium and magnesium were provided the patient Patient care continued in the intensive care unit for close monitoring and continue cardiac monitoring Due to the patient's spiking of heart rate with exertion, we will add diltiazem CD 180 mg tablet to his regimen. And give this daily. Continue to monitor closely. (3) Arrhythmia: Start date: 07/22/24 Status: Acute Assessment and plan: Wide-complex tachycardia likely aberrant reentry phenomenon. Will supplement potassium and magnesium Continue cardiac monitoring (4) Alcohol abuse: Status: Chronic Assessment and plan: CIWA scoring per protocol, maxed at 2 overnight. Benzodiazepine alcohol withdrawal protocol continues Patient is concerned he may have trouble since he has not gone without a generous amount of alcohol in a very long time. Patient is placed on supplemental vitamins via IV infusion Will continue on oral folate supplementation and B complex. Folate level > 20 Will discontinue banana bag when the current IV runs out. Continue IV fluids none supplemented with vitamins Continue oral multivitamin and folate daily. (5) Poor dentition: Status: Acute Assessment and plan: Discussed with patient Recommend outpatient dental evaluation as dental and gum health is associated with heart health (6) Umbilical hernia without obstruction and without gangrene: Status: Acute Assessment and plan: Surgical evaluation as an outpatient. No urgency at this time. (7) Morbid obesity: Status: Acute Assessment and plan: Patient may possibly have sleep apnea which may be contributing to caloric intake (8) Bilateral leg edema: Status: Acute Assessment and plan: Continue diuresis Patient will remain at bedrest edema may worsen Continue DVT prophylaxis with once daily low molecular weight heparin. Discussed with pharmacy. (9) On deep vein thrombosis (DVT) prophylaxis: Status: Acute Assessment and plan: Low molecular weight heparin once daily. This is discussed with pharmacy. (10) Hyperglycemia: Status: Acute Assessment and plan: hemoglobin A1c normal. No evidence of diabetes (11) Elevated d-dimer: Status: Acute Assessment and plan: CT pulmonary angiogram was negative for signs of pulmonary emboli. (12) Adrenal nodule: Status: Acute Assessment and plan: Plan for evaluation as outpatient with possible MRI and appropriate consultation Subjective Subjective Interval history since last seen: Clinical course reviewed including notes, orders, labs, vitals, meds, imaging, and cultures. Care is discussed with primary nurse. Overnight, the patient had a 20 beat nonsustained run of wide complex tachycardia, possibly an aberrant reentry pattern. Magnesium on admission was 2.1. Potassium 3.9 this morning. Patient had 50 mL in and 2.35 L out. Notable laboratories overnight include hemoglobin A1c of 5.8. Glucose this morning is 109. Creatinine 1.0. AST has reduced from 41-29 and ALT reduced from 70-51 this morning. Patient admitted through the emergency department yesterday after progressive dyspnea over 1 month. He had not seen a doctor in some 10+ years. Noted to have atrial fibrillation with rapid ventricular response. Initially treated with oral metoprolol, later placed on diltiazem drip and admitted to the intensive care unit. Benzodiazepine alcohol withdrawal protocol initiated. A 14 point review of systems was performed and negative except as noted below and in the HPI. Exam Narrative Exam Narrative: Patient is alert and oriented x 3 and in no acute distress. Exam today is essentially without clinical change. HEENT: Neck supple, MM pink and moist, conjunctiva non-injected, sclera non-icteric, Pupils equal and reactive to light symmetrically, no JVD, no A waves. No thyromegaly. No carotid bruit. Patient is missing his maxillary incisors and canine teeth. He has multiple molars with active caries at this time. He has a small posterior airway possibly class III-IV CHEST: Bilaterally symmetrical with inspiration and expiration. No use of accessory muscles of respiration. No nasal flaring. RESP: Distant breath sounds secondary to body habitus, bilateral bibasilar crackles noted no rhonchi or wheeze, no pleural friction rub, no post-tussive crackles or apical rales. COR: Distant tones and difficult to appreciate, RRR without murmur, normal S1, S2, no rub or gallop ABDOMEN: Obese grossly distended and mildly tympanitic, no peritoneal signs. Bowel sounds are active diffusely. There is a periumbilical defect which is easily reducible. Organomegaly cannot be defined due to body habitus, No abdominal bruit, no masses, no tenderness on deep abdominal palpation. G/U: deferred Rectal: deferred MUSCULOSKELETAL: Bilaterally symmetrical, no muscle belly tenderness or mass DERMIS: Skin warm and dry, no ulcers or rashes, EXTREMITIES: No cyanosis, clubbing but 3+ pitting edema in the lower extremity bilaterally. NEUROLOGICAL: Cranial nerves intact II-XII without notable deficit, No peripheral neurosensory or motor deficits noted. LYMPH: No anterior or posterior cervical, no supraclavicular, No axillary, no epitrochlear or femoral lymphadenopathy. Objective Last Vital Signs Temp 37.0 C 07/22/24 04:01 Pulse 52 L 07/22/24 06:01 Resp 22 07/22/24 06:15 BP 109/85 07/22/24 06:01 Pulse Ox 92 07/22/24 06:15 Laboratory Results - last 24 hr 07/21/24 07/21/24 07/21/24 14:36 14:36 14:36 WBC 8.27 RBC 4.76 Hgb 15.8 Hct 46.7 MCV 98 H MCH 33.2 H MCHC 33.8 RDW 13.0 Plt Count 248 MPV 8.4 Immature Gran % 0.4 Neutrophils % 75.0 Lymphocytes % 16.2 Monocytes % 7.4 Eosinophils % 0.5 Basophils % 0.5 Nucleated RBC % 0.0 Absolute Neutrophils 6.21 Absolute Lymphocytes 1.34 Absolute Monocytes 0.61 Absolute Eosinophils 0.04 Absolute Basophils 0.04 D-Dimer 1867 H Sodium Cancelled 139 Potassium Cancelled 3.8 Chloride Cancelled Carbon Dioxide Anion Gap BUN Creatinine Est GFR (CKD-EPI 2020) Glucose Hemoglobin A1c Calcium Magnesium Total Bilirubin AST ALT Alkaline Phosphatase Troponin I NT-Pro-B Natriuret Pep Total Protein Albumin Folate COVID-19 Source SARS-CoV-2 (PCR) 07/21/24 07/21/24 07/21/24 14:36 14:36 14:36 WBC RBC Hgb Hct MCV MCH MCHC RDW Plt Count MPV Immature Gran % Neutrophils % Lymphocytes % Monocytes % Eosinophils % Basophils % Nucleated RBC % Absolute Neutrophils Absolute Lymphocytes Absolute Monocytes Absolute Eosinophils Absolute Basophils D-Dimer Sodium Potassium Chloride 104 Carbon Dioxide Cancelled 25.2 Anion Gap Cancelled 9.8 BUN Cancelled Creatinine Est GFR (CKD-EPI 2020) Glucose Hemoglobin A1c Calcium Magnesium Total Bilirubin AST ALT Alkaline Phosphatase Troponin I NT-Pro-B Natriuret Pep Total Protein Albumin Folate COVID-19 Source SARS-CoV-2 (PCR) 07/21/24 07/21/24 07/21/24 14:36 14:36 14:36 WBC RBC Hgb Hct MCV MCH MCHC RDW Plt Count MPV Immature Gran % Neutrophils % Lymphocytes % Monocytes % Eosinophils % Basophils % Nucleated RBC % Absolute Neutrophils Absolute Lymphocytes Absolute Monocytes Absolute Eosinophils Absolute Basophils D-Dimer Sodium Potassium Chloride Carbon Dioxide Anion Gap BUN 15 Creatinine Cancelled 1.0 Est GFR (CKD-EPI 2020) Cancelled 85.10 Glucose Cancelled Hemoglobin A1c Calcium Magnesium Total Bilirubin AST ALT Alkaline Phosphatase Troponin I NT-Pro-B Natriuret Pep Total Protein Albumin Folate COVID-19 Source SARS-CoV-2 (PCR) 07/21/24 07/21/24 07/21/24 14:36 14:36 14:36 WBC RBC Hgb Hct MCV MCH MCHC RDW Plt Count MPV Immature Gran % Neutrophils % Lymphocytes % Monocytes % Eosinophils % Basophils % Nucleated RBC % Absolute Neutrophils Absolute Lymphocytes Absolute Monocytes Absolute Eosinophils Absolute Basophils D-Dimer Sodium Potassium Chloride Carbon Dioxide Anion Gap BUN Creatinine Est GFR (CKD-EPI 2020) Glucose 162 H Hemoglobin A1c Calcium Cancelled 9.3 Magnesium Cancelled 2.1 Total Bilirubin Cancelled AST ALT Alkaline Phosphatase Troponin I NT-Pro-B Natriuret Pep Total Protein Albumin Folate COVID-19 Source SARS-CoV-2 (PCR) 07/21/24 07/21/24 07/21/24 14:36 14:36 14:36 WBC RBC Hgb Hct MCV MCH MCHC RDW Plt Count MPV Immature Gran % Neutrophils % Lymphocytes % Monocytes % Eosinophils % Basophils % Nucleated RBC % Absolute Neutrophils Absolute Lymphocytes Absolute Monocytes Absolute Eosinophils Absolute Basophils D-Dimer Sodium Potassium Chloride Carbon Dioxide Anion Gap BUN Creatinine Est GFR (CKD-EPI 2020) Glucose Hemoglobin A1c Calcium Magnesium Total Bilirubin 1.07 H AST Cancelled 41 H ALT Cancelled 70 H Alkaline Phosphatase Cancelled Troponin I NT-Pro-B Natriuret Pep Total Protein Albumin Folate COVID-19 Source SARS-CoV-2 (PCR) 07/21/24 07/21/24 07/21/24 14:36 14:36 14:36 WBC RBC Hgb Hct MCV MCH MCHC RDW Plt Count MPV Immature Gran % Neutrophils % Lymphocytes % Monocytes % Eosinophils % Basophils % Nucleated RBC % Absolute Neutrophils Absolute Lymphocytes Absolute Monocytes Absolute Eosinophils Absolute Basophils D-Dimer Sodium Potassium Chloride Carbon Dioxide Anion Gap BUN Creatinine Est GFR (CKD-EPI 2020) Glucose Hemoglobin A1c Calcium Magnesium Total Bilirubin AST ALT Alkaline Phosphatase 97 Troponin I 41 NT-Pro-B Natriuret Pep 5407 H Total Protein Cancelled 7.6 Albumin Cancelled 3.3 L Folate COVID-19 Source SARS-CoV-2 (PCR) 07/21/24 07/21/24 07/21/24 15:30 15:38 17:38 WBC RBC Hgb Hct MCV MCH MCHC RDW Plt Count MPV Immature Gran % Neutrophils % Lymphocytes % Monocytes % Eosinophils % Basophils % Nucleated RBC % Absolute Neutrophils Absolute Lymphocytes Absolute Monocytes Absolute Eosinophils Absolute Basophils D-Dimer Sodium Potassium Chloride Carbon Dioxide Anion Gap BUN Creatinine Est GFR (CKD-EPI 2020) Glucose Hemoglobin A1c Calcium Magnesium Total Bilirubin AST ALT Alkaline Phosphatase Troponin I Cancelled 43 NT-Pro-B Natriuret Pep Total Protein Albumin Folate COVID-19 Source Nasal/Nares SARS-CoV-2 (PCR) Negative 07/21/24 07/22/24 19:55 05:40 WBC 7.37 RBC 4.48 Hgb 14.9 Hct 44.9 MCV 100 H MCH 33.3 H MCHC 33.2 RDW 13.3 Plt Count 221 MPV 8.6 Immature Gran % 0.4 Neutrophils % 64.7 Lymphocytes % 22.1 Monocytes % 10.7 Eosinophils % 1.4 Basophils % 0.7 Nucleated RBC % 0.0 Absolute Neutrophils 4.77 Absolute Lymphocytes 1.63 Absolute Monocytes 0.79 Absolute Eosinophils 0.10 Absolute Basophils 0.05 D-Dimer Sodium 140 Potassium 3.9 Chloride 106 Carbon Dioxide 26.4 Anion Gap 7.6 BUN 19 H Creatinine 1.0 Est GFR (CKD-EPI 2020) 85.10 Glucose 109 H Hemoglobin A1c 5.8 H Calcium 8.5 Magnesium Total Bilirubin 0.74 AST 29 ALT 51 Alkaline Phosphatase 89 Troponin I NT-Pro-B Natriuret Pep Total Protein 6.6 Albumin 2.9 L Folate > 20.0 H COVID-19 Source SARS-CoV-2 (PCR) Reviewed Pertinent PMH: Yes PAWSS Have you Been Recently Intoxicated or Drunk Within the Last 30 days?: No Have you Ever Experienced Previous Episodes of Alcohol Withdrawal?: No Have you ever Experienced Withdrawal Seizures?: No Have you ever Experienced Delirium Tremens(DT)s?: No Have you ever undergone Alcohol Rehabilitation Treatment (i.e, inpt ot outpatient treatment programs)?: No Have you ever Experienced Blackouts?: No Have you ever Combined Alcohol with other Downers within the last 90 days?: No Have you ever Combined Alcohol with any other Substance of Abuse during the last 90 days?: No Evidence of Increased Autonomic Activity (i.e. HR>120, tremor, sweating, agitation, nausea)?: No Result: 0 Time Spent with Patient Time Spent with Patient: >50 minutes Time was spent: preparing to see the patient(eg.review tests), obtaining and/or reviewing separately otained hiistory, ordering medications,tests, procedures, referring, communicating with other health anesthesiologist and critical care, indepentently interpreting results, counseling the patient and care coordination
[2024-07-22] MEDS: Enoxaparin 60 MG/0.6 ML SYR SC (07:39)
[2024-07-22] MEDS: Multivitamin TAB 1 TAB PO (07:39)
[2024-07-22] MEDS: Normal Saline Flush 10 ML SYR IVP ×2 (07:39→20:01)
[2024-07-22] MEDS: MAGNESIUM SULFATE 2 GM/50 ML BAG IVINF (08:38)
[2024-07-22] MEDS: Potassium Chloride 20 MEQ TABCR PO ×2 (08:38→19:58)
[2024-07-22] MEDS: Furosemide 40 MG/4 ML VIAL IVP (08:38)
[2024-07-22] MEDS: Miconazole 2% Topical Powder 85 GM BTL TP ×2 (09:08→20:00)
--- NOTE | 2024-07-22 10:41 | PHA.REVIEW2 ---
Pharmacy Admission Review Admission Clinical Review Admission Pharmacy Review: Arrhythmia (Acute) Elevated d-dimer (Acute) Hyperglycemia (Acute) On deep vein thrombosis (DVT) prophylaxis (Acute) Bilateral leg edema (Acute) Morbid obesity (Acute) Umbilical hernia without obstruction and without gangrene (Acute) Poor dentition (Acute) Adrenal nodule (Acute) Acute HFrEF (heart failure with reduced ejection fraction) (Acute) Atrial fibrillation with RVR (Acute) No Known Allergies Allergy (Unverified 07/21/24 11:04) Resuscitation Status Full Code Height 5 ft 11 in Weight 102.3 kg Comments Comments/Follow Ups: Follow up on diltiazem drip (does patient still need it??) - see Cardiac Monitoring section Pharmacy Admission Review Renal Dosing Renal Dosing: BUN 19 mg/dL (7-18) H 07/22/24 05:40 Creatinine 1.0 mg/dL (0.70-1.30) 07/22/24 05:40 Medications needing adjustments: Reviewed (CrCl 93.2 mL/min, BUN increased from 15) List of meds needing interventions: Current medications are okay Anticoagulation Anticoagulation: Hgb 14.9 g/dL (13.5-17.5) 07/22/24 05:40 Hct 44.9 % (40.0-50.0) 07/22/24 05:40 Plt Count 221 10^3/uL (130-400) 07/22/24 05:40 Creatinine 1.0 mg/dL (0.70-1.30) 07/22/24 05:40 DVT Prophylaxis: Intervened Medications: Enoxaparin (60mg daily - spoke with provider, provider wants to use 0.5mg/kg/day dosing) Relevant Labs Relevant Labs: Sodium 140 mmol/L (136-145) 07/22/24 05:40 Potassium 3.9 mmol/L (3.5-5.1) 07/22/24 05:40 Chloride 106 mmol/L (98-107) 07/22/24 05:40 Magnesium 2.1 mg/dL (1.8-2.4) 07/21/24 14:36 Magnesium Cancelled 07/21/24 14:36 Electrolytes, C-Reactive P, ESR: Reviewed (AST/ALT decreased from 41/70 to 29/51, albumin decreased from 3.3 to 2.9) DM Control DM Control: Glucose 109 mg/dL (74-106) H 07/22/24 05:40 Hemoglobin A1c 5.8 % (<5.7) H 07/21/24 19:55 DM Control: Reviewed Insulin Dosing, Diabetic Medication: No diagnosis of diabetes Cardiac Review Cardiac Review: Troponin I 43 ng/L (<or=76) 07/21/24 17:38 NT-Pro-B Natriuret Pep 5407 pg/mL (<300) H 07/21/24 14:36 Blood Pressure : Heart Rate 138/97 : 91 0901 Blood Pressure : Heart Rate 163/93 : 95 0801 Blood Pressure : Heart Rate 132/91 : 84 0722 Blood Pressure : Heart Rate 111/86 : 82 0701 Blood Pressure : Heart Rate 109/85 : 52 0601 Blood Pressure : Heart Rate 117/89 : 62 0502 Blood Pressure : Heart Rate 124/92 : 105 0401 Blood Pressure : Heart Rate 116/90 : 88 0309 Blood Pressure : Heart Rate 103/82 : 72 0201 Blood Pressure : Heart Rate 112/92 : 89 0113 BP, HR, EF%: Intervened (RR 27) List meds needing interventions: Has order for diltiazem infusion, was paused this morning at 0450 and not resumed. Progress note and provider during morning meeting stated that it was to be continued. Informed provider that it was paused and not currently running. Provider is looking into it, he was unaware that the infusion was paused. QTc Review QTc: Reviewed (480 from 07/21/24) IV to PO Switch IV Medications: Reviewed (diltiazem and lorazepam) Home Meds Home Med List reviewed: Reviewed Relevent Home Meds Not ordered & why?: aspirin, ibuprofen (PRN), sildenafil (PRN) and triamcinolone (PRN) Current Meds Current Medication Order Review: Intervened Comments: Has order for lorazepam for CIWA - no doses given, CIWA 0 since 0109 this morning Patient has scheduled order for daily banana bag, spoke with provider who said patient no longer needed. I discontinued order. Comments Comments/Follow Ups: Follow up on diltiazem drip (does patient still need it??) - see Cardiac Monitoring section
--- NOTE | 2024-07-22 11:34 | PT.INIE ---
PT Notes Visit Reasons: HEART FAILURE, A FIB WITH RAPID RATE Inpatient Physical Therapy Evaluation Date: 07-22-2024 Referring Doctor: Dr. Squires PT Orders: PT CONSULT: PT eval and treat due to limited ability Precautions: IV BUE Patient Profile/Admitting Diagnosis: Patient is 64-year-old male presented to the ED with increased shortness of breath progressively over past 1 month. In the ED patient noted to be in A-fib with rapid ventricular rate (160s). He was noted to have bilateral lower extremity edema pitting. Echocardiogram showed EF 31 to 33%. He was started on diuretics. CT angiogram is negative for pulmonary embolism and negative for aortic dissection, positive small bilateral pleural effusions and a left adrenal nodule. Patient diagnosed with arrhythmia elevated D-dimer acute heart failure with reduced ejection fraction. Patient was transferred to the ICU for continued medical management and monitoring. PT consult placed to assess functional ability. PMHX: Umbilical hernia, Social History/Home Situation: lives alone in 2nd floor apartment with 2 sets of 10 stairs with B rails. 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 He drives several hours to work and stands throughout the day. Patient drinks 6 beers per day. Positive tobacco Equipment Owned/DME: none Subjective: Patient reports he has the hardest time exhaling. I feel like I cannot get the air out after a take of breath in. He reports having to carry his work bag up the flight of stairs when he gets to the top he reports being short of breath needs to pause against the wall before he starts walking down the cochran to his apartment. He reports he has had swelling in both his legs as he noted his boots were tighter at the ankle for about 1 month. Objective: General Observation: Male lying in bed with eyes closed, abdominal distention noted who was easily awakened and agreeable to participate. IV fluids infusing into right UE and telemetry . Mental Status: Alert and oriented x 4 cooperative Pain: Denies Vital Signs: Monitored via telemetry throughout session ROM: Right Upper Extremity: WNL Left Upper Extremity: WNL Right Lower Extremity: WNL Left Lower Extremity: WNL Strength: Right Upper Extremity: 5/5 Left Upper Extremity: 5/5 Right Lower Extremity: 5/5 Left Lower Extremity: 5/5 Sensation: Intact Bed Mobility/Transfers: Independent without device Gait: Patient ambulate 150 feet with out assistive device supervision level surfaces including turns demonstrating wide base of support, decreased step length, decreased lico decreased arm swing bilaterally Stairs: 5 steps with 2 rails reciprocal pattern supervision cues for breath control and pacing. Patient reports mild shortness of breath/MERAZ after completing 5 steps. Balance: [] Static Sitting: Normal Dynamic Sitting: Normal Static Standing: Normal Dynamic Standing: Normal Special Tests: Mobility Limitations Standardized [employer] [facility] [employer] AM-PAC 6 clicks Basic Mobility Inpatient Short Form: Raw Score: 23 CMS Score: 11.20% Informed Consent/Education: Patient instructed in purpose of PT consult and plan of care. Assessment: Patient is a 64 year old male referred to physical therapy services with the diagnosis of heart failure. Patient demonstrates ability to maintain oxygen saturation greater than 90% during functional tasks however reports perceived exertion with dyspnea during functional tasks. Patient demonstrates poor technique of inhalation exhalation with short fast inhalation and short fast exhalation. Patient presents with clinical signs and symptoms consistent with admitting diagnosis, as demonstrated by the following impairment level findings: 1. Impaired activity tolerance 2. Poor pacing and breath control strategies during functional tasks Impairments are contributing to the following functional limitations: 1. AMPAC score. 2. Difficulty managing steps to safely enter home without dyspnea 3. Increased completion time for mobility/ADL performance Patient is assessed as a [X] Low 61221 complexity based on the following: History: 64 yo male presenting with past medical history as stated above Examination: demonstrates dyspnea on exertion, impaired functional activity tolerance limiting functional ability Presentation: stable Decision Making: low Goals: Goals X1 week 1. pt will demonstrate ability to ambulate > 400 feet without MERAZ/SOB independently 2. Pt will demonstrate 13 steps x 2 with 2 rails independently demonstrating breath control and pacing. Plan of Care/Treatment Plan: 1-2x/day, 7 days/week x 1 week. Plan of care has been reviewed with the MEDICAL LABORATORY ASSISTANT providing the service under Physical Therapy direction. Initiate Physical Therapy intervention for strengthening, bed mobility, transfers, gait, stairs, balance training, use of assistive device. Treatment Therapeutic activity: Functional ambulation including surface to surface transfers to simulate mobility within his apartment item transport with supervision and 5 stairs x 2 with bilateral rails cues for pacing stand rest after 5 steps with 3 deep breaths performed with slow exhalation and slow inhalation. DISCHARGE RECOMMENDATIONS: X Home with no services [] [] Home with services [specify] [] Home with outpatient PT [] [] SNF for continued rehabilitation [] [] Conservation Educator Care [] [] SNF versus LTC based on ability to participate and progress [] TREATMENT CODE/TIME: 11000 x 20 mins for 1 unit [id number] 22mins for 1 unit/ [id number] Please sign an return this page within 30 days if you agree with the above POC. Thank you! Physician Signature Date [facility]
--- NOTE | 2024-07-22 13:12 | INITIAL_ITS ---
Date of service: 07/22/24 Time of Service: 11:30 Care Management Initial Assmt Initial Assessment Reason for Hospitalization: Les came to the ED yesterday with c/o shortness of breath, to the point that he could not even tie his shoes without being winded. In the ER, he was found to have afib with a rapid ventricular response, and was admitted to the ICU Functional Status/Living Situation Patient Presentation: Les was just returning from a walk with PT when CM met with him this morning. He looked steady on his feet, and did not appear winded. Les was pleasant and agreeable to speak with CM. Les stated that he has not seen a PCP in at least 10 years. He was not even sure who he had been seeing. He stated that he feels a lot better today. CM and he discussed that he had a lot of extra fluid in his body and lungs, and that is why he was having so much trouble breathing. He stated that the SOB has been worsening over the last year. He has had to make adjustments in his lifestyle to accommodate his shortness of breath, and didn't even realize he was doing it. 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 Town of Residence: [place] Resides with: Alone Natural Supports: Les' brother Endy is the only family. He lives in [place]. He has a good friend Paul who is a great support, as is Paul's . He has a neighbor who will sometimes help him with carrying bags and such. 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) Instrumental Activities of Daily Living (ADLs): Independent Activities/Hobbies/SocialSupport: Nothing, really Medications Medication Management: No Issues/Barriers identified Advance Directives Advance Directives: 2 Do you have an Advance Directive: N 09/21/14 09:11 AD On File at [facility]: N 09/21/14 09:11 Date Asked 07/21/24 07/21/24 14:17 AD Date Reviewed COLST On File at [facility] COLST Date Scanned Code Status Resuscitation Status Full Code Insurance Coverage/Financial Issues Insurance: BC/BS [place] Financial Issues: denies Care Team Visit Care Team Role Provider Type Unknown Unknown Primary Care Provider STAFF PHYSICIAN InPatient Yoel Landis Other Providers OTHER Alok Lainez MD Emergency Provider [facility] STAFF PHYSICIAN Jn SquiresDO Admit Provider MD [facility]UC[facility] STAFF PHYSICIAN Attending Provider Discharge Potential Discharge Needs: Consult Consult Services Needed: Cardiology and PCP F/U Appt Anticipated Barriers to Discharge: None Identified Patient/Family Education Needs: Review discharge instructions, discuss Ask Me Three Transportation: Private vehicle Plan: Anticipate that Les will be discharged with no new services. He will f/u with his new PCP at an appointment made for him prior to discharge. He may need cardiology f/u as well. He will continue per the prescribed plan of care. He will transport home in his own vehicle, which he drove to the ER. CM will continue to follow and to update the plan as needed. PFSH All Active Problems (Updated 07/22/24 @ 07:25 by Jn Squires DO) Arrhythmia (Acute) Elevated d-dimer (Acute) Hyperglycemia (Acute) On deep vein thrombosis (DVT) prophylaxis (Acute) Bilateral leg edema (Acute) Morbid obesity (Acute) Umbilical hernia without obstruction and without gangrene (Acute) Poor dentition (Acute) Alcohol abuse (Chronic) Adrenal nodule (Acute) Acute HFrEF (heart failure with reduced ejection fraction) (Acute) Atrial fibrillation with RVR (Acute) Family History Mother No problems noted. Father Heart disease VALVE REPLACEMENT Sister Neoplasm CERVICAL Brother No problems noted. Brother No problems noted. Brother No problems noted. Brother No problems noted. Brother No problems noted. Social History Smoking/Tobacco Use Status: Current every day Smoking risk assessment performed?: Yes Alcohol Intake: current Alcohol Intake frequency: 3 or more drinks per day Alcohol type: beer Drug use: Never Substance use type: does not use Housing: apartment Do you feel safe at home: Yes Do you feel safe in your relationship?: Yes Readmission Within the Past 30 Days Yes or No: No SDOH(Care Management) Screening Will the Patient Participate in the Screening?: Yes Do you worry about having a steady place to live?: no In the past 12 months, have you had to go without electric, gas, oil or water in your home?: no Have you or anyone in your house had to go without enough food to eat?: no Has lack of transportation kept you from medical appointments or from doing things needed for daily living?: no Has anyone in your support network made you feel unsafe for any reason?: no
--- NOTE | 2024-07-22 15:40 | PTTR_ITS ---
PT Notes Visit Reasons: HEART FAILURE, A FIB WITH RAPID RATE Inpatient Physical Therapy Treatment [facility] Date:07-22-2024 PRECAUTIONS:Telemetry. Monitor HR throughout. SUBJECTIVE: pt reports he has not had much sleep but he wanted to do something OBJECTIVE:pt supine in bed HR 105 nurse aware of elevated HR from morning session .Nurse stated appropriate to treat . Pt agreeable and motivated to do something ? PAIN: denies VITALS: monitored via telemetry heart rate (117-137)while ambulating Therapeutic Activities (50216): Direct one-on-one instruction in dynamic activit ies to improve functional performance. ?? functional ambulation with out AD level surfaces 200 feet x1 , 100 feet x 2 with sit rests and cues for breath control . ASSESSMENT:?Pt with elevation in heart rate (117-137) during functional ambulation during this session after ambulating 200 feet. pt required sit rest and cues for breath control to return HR to below 110. Pt reported sensation of difficulty exhaling as HR increased. Oxygen saturation remained >92% on RA throughout. Pt with no reports of headache, chest pain or lightheaded/dizziness during this session. PLAN: continued skilled PT 1-2 times per day for functional mobility , functional activity tolerance, pacing and breath control techniques until appropriate for discharge TREATMENT CODE/TIME: 32201 x 34mins for 2 units/ [id number] DISCHARGE RECOMMENDATION: Home with no services when medically appropriate for discharge
[2024-07-23] VITALS (102 sets, daily range): BP systolic 98–141; BP diastolic 82–106; PULSE 45–160; RESP 9–34; TEMP 36.7; O2SAT 86–99
[2024-07-23 06:53] LABS: Anion Gap 8.2 mmol/L (3-11); BUN 21 mg/dL (7-18); CO2 25.8 mmol/L (21.0-32.0); CREATININE 0.9 mg/dL (0.70-1.30); Calcium 8.9 mg/dL (8.5-10.1); Chloride 107 mmol/L (98-107); Estimated GFR 96.57 (mL/min/1.73m2); Glucose 105 mg/dL (74-106); Magnesium 2.6 mg/dL (1.8-2.4); Potassium 4.2 mmol/L (3.5-5.1); Sodium 141 mmol/L (136-145)
--- NOTE | 2024-07-23 07:29 | PGE_ITS ---
Date of Service Date of service: 07/23/24 Time of Service: 07:30 Assessment and Plan Assessment and plan (1) Acute HFrEF (heart failure with reduced ejection fraction): Status: Acute Assessment and plan: Continue diuresis. Change to daily PO lasix order. follow K+ and M++ on diuretic Continue cardiac monitoring Echocardiogram final read reveals no valvular disease but global hypokinesis. There is not focal hypokinesis but rather global. troponins negative. HR remains elevated (2) Atrial fibrillation with RVR: Status: Acute Assessment and plan: Has been on diltiazem CD 180 mg daily x 2 doses, we have not achieved good effect nor rate control. HR now ^^ 140+ at rest. Will give lopressor 5mg x 1 dose and begin amiodarone IV load. Orders entered. Continue to monitor closely. (3) Arrhythmia: Start date: 07/22/24 Status: Acute Assessment and plan: Wide-complex tachycardia likely aberrant reentry phenomenon. Continue cardiac monitoring while loading amiodarone (4) Alcohol abuse: Status: Chronic Assessment and plan: CIWA scoring per protocol, reported at 0 overnight . Benzodiazepine alcohol withdrawal protocol continues Patient is concerned he may have trouble since he has not gone without a generous amount of alcohol in a very long time. Patient is placed on supplemental vitamins via IV infusion, this will be stopped. Will continue on oral folate supplementation and B complex. Folate level > 20 Will discontinue banana bag when the current IV runs out. Decrease IV fluids Continue oral multivitamin and folate daily. (5) Poor dentition: Status: Acute Assessment and plan: Discussed with patient Recommend outpatient dental evaluation as dental and gum health is associated with heart health (6) Umbilical hernia without obstruction and without gangrene: Status: Acute Assessment and plan: Surgical evaluation as an outpatient. No urgency at this time. (7) Morbid obesity: Status: Acute Assessment and plan: Patient may possibly have sleep apnea which may be contributing to caloric intake (8) Bilateral leg edema: Status: Acute Assessment and plan: Continue diuresis Patient will remain at bedrest edema may worsen Continue DVT prophylaxis with once daily low molecular weight heparin. Discussed with pharmacy. (9) On deep vein thrombosis (DVT) prophylaxis: Status: Acute Assessment and plan: Low molecular weight heparin once daily. This is discussed with pharmacy. (10) Hyperglycemia: Status: Acute Assessment and plan: hemoglobin A1c normal. No evidence of diabetes (11) Elevated d-dimer: Status: Acute Assessment and plan: CT pulmonary angiogram was negative for signs of pulmonary emboli. (12) Adrenal nodule: Status: Acute Assessment and plan: Plan for evaluation as outpatient with possible MRI and appropriate consultation Subjective Subjective Interval history since last seen: Clinical course reviewed including notes, orders, labs, vitals, meds, imaging, and cultures. Care is discussed with primary nurse. Magnesium and Potassium are normal levels this morning. started on diltiazem last evening to control rate. HR in 80's. PT note appreciated with ^^ HR with excercise. Later in day, resting HR while sedentary approaching 120++ patient given IV metoprolol and amiodarone IV load initiated. NO BM x 3 days patient uncomfortable. MOM prescribed. Patient had 3.3L out yesterday.. Notable laboratories overnight include hemoglobin A1c of 5.8. Glucose this morning is 109. Creatinine 1.0. AST has reduced from 41-29 and ALT reduced from 70-51 this morning. Patient admitted through the emergency department yesterday after progressive dyspnea over 1 month. He had not seen a doctor in some 10+ years. Noted to have atrial fibrillation with rapid ventricular response. Initially treated with oral metoprolol, later placed on diltiazem drip and admitted to the intensive care unit. Benzodiazepine alcohol withdrawal protocol initiated. A 14 point review of systems was performed and negative except as noted below and in the HPI. Exam Narrative Exam Narrative: Patientevaluated in the ICU and is alert and oriented x 3 and in no acute distress. Exam today is essentially without clinical change. NO BM in three days. HEENT: Neck supple, MM pink and moist, conjunctiva non-injected, sclera non- icteric, Pupils equal and reactive to light symmetrically, no JVD, no A waves. No thyromegaly. No carotid bruit. Patient is missing his maxillary incisors and canine teeth. He has multiple molars with active caries at this time. He has a small posterior airway possibly class III-IV CHEST: Bilaterally symmetrical with inspiration and expiration. No use of accessory muscles of respiration. No nasal flaring. RESP: Distant breath sounds secondary to body habitus, bilateral bibasilar crackles noted no rhonchi or wheeze, no pleural friction rub, no post-tussive crackles or apical rales. COR: Distant tones and difficult to appreciate, RRR without murmur, normal S1, S2, no rub or gallop ABDOMEN: Obese grossly distended and mildly tympanitic, no peritoneal signs. Bowel sounds are active diffusely. There is a periumbilical defect which is easily reducible. Organomegaly cannot be defined due to body habitus, No abdominal bruit, no masses, no tenderness on deep abdominal palpation. G/U: deferred Rectal: deferred MUSCULOSKELETAL: Bilaterally symmetrical, no muscle belly tenderness or mass DERMIS: Skin warm and dry, no ulcers or rashes, EXTREMITIES: No cyanosis, clubbing but 3+ pitting edema in the lower extremity bilaterally. NEUROLOGICAL: Cranial nerves intact II-XII without notable deficit, No peripheral neurosensory or motor deficits noted. LYMPH: No anterior or posterior cervical, no supraclavicular, No axillary, no epitrochlear or femoral lymphadenopathy. Objective Last Vital Signs Temp 36.5 C 07/22/24 15:40 Pulse 60 07/23/24 06:01 Resp 14 07/23/24 06:01 BP 129/98 H 07/23/24 06:01 Pulse Ox 95 07/23/24 06:01 Laboratory Results - last 24 hr 07/23/24 05:50 Sodium 141 Potassium 4.2 Chloride 107 Carbon Dioxide 25.8 Anion Gap 8.2 BUN 21 H Creatinine 0.9 Est GFR (CKD-EPI 2020) 96.57 Glucose 105 Calcium 8.9 Magnesium 2.6 H PAWSS Have you Been Recently Intoxicated or Drunk Within the Last 30 days?: No Have you Ever Experienced Previous Episodes of Alcohol Withdrawal?: No Have you ever Experienced Withdrawal Seizures?: No Have you ever Experienced Delirium Tremens(DT)s?: No Have you ever undergone Alcohol Rehabilitation Treatment (i.e, inpt ot outpatient treatment programs)?: No Have you ever Experienced Blackouts?: No Have you ever Combined Alcohol with other Downers within the last 90 days?: No Have you ever Combined Alcohol with any other Substance of Abuse during the last 90 days?: No Evidence of Increased Autonomic Activity (i.e. HR>120, tremor, sweating, agitation, nausea)?: No Result: 0 Time Spent with Patient Time Spent with Patient: >50 minutes Time was spent: preparing to see the patient(eg.review tests), obtaining and/or reviewing separately [facility], ordering medications,tests, procedures, referring, communicating with other health neonatal intensive care unit nurse, indepentently interpreting results, counseling the patient and care coordination
[2024-07-23] MEDS: Normal Saline Flush 10 ML SYR IVP ×3 (08:23→21:01)
[2024-07-23] MEDS: Enoxaparin 60 MG/0.6 ML SYR SC (08:23)
[2024-07-23] MEDS: Potassium Chloride 20 MEQ TABCR PO ×2 (08:24→20:49)
[2024-07-23] MEDS: Furosemide 20 MG TAB PO ×2 (08:24→17:25)
[2024-07-23] MEDS: dilTIAZem CD 180 MG CAPCR PO (08:24)
[2024-07-23] MEDS: Multivitamin TAB 1 TAB PO (08:24)
[2024-07-23] MEDS: Miconazole 2% Topical Powder 85 GM BTL TP ×2 (08:26→21:01)
--- NOTE | 2024-07-23 08:58 | PTTR_ITS ---
PT Notes Visit Reasons: HEART FAILURE, A FIB WITH RAPID RATE Inpatient Physical Therapy Treatment Note [facility] Date:07/23/2024 PRECAUTIONS: Activity as tolerated. Standard precautions. Closely monitor HR during session. SUBJECTIVE: Agreeable to moving around. Hping to go home as soon as he is medically cleared. Happy about how much he was able to do this morning. Looking forward to doing more. Wants to be as stable as he could to come back to work. Denied headache, chest pain nad lightheadedness throughout. OBJECTIVE:? PAIN: None reported VITALS: Brief crescendo in HR to 149 bpm and decrescendo to low 120s during stair negotiation and use of NuStep machine BED MOBILITY: Independent TRANSFERS: Supervision AMBULATION: Stand by assist for about 150 feet + 150 feet using no assistive device with HR highest of high 130s and lowest of low 120s bpm STAIRS: Up and down 15 x 4-inch steps and 10 x 6-inch steps while holding onto B rails with [id number] pattern with HR highest at high 130s and low 120s THERA ACT: NuStep x 2 minutes for 4 sets with lowest resistance with highest HR at 149 bpm which briefly went down to low 120s bpm ASSESSMENT:? Activity tolerance improving. HR beginning to be more controlled with mobility ADL performance without causing any undue stress in patient. PLAN: Continue with skilled PT services as initially established in PT POC for functi onal mobility , functional activity tolerance, pacing and breath control techniques until appropriate for discharge DISCHARGE RECOMMENDATION: Patient will benefit from home health PT services in order to progress mobility level using least restrictive assistive ambulatory device, assess home safety, identify additional equipment needs, and establish a functional maintenance program that will increase ability of patient to remain at home. TREATMENT CODE/TIME: 37322 x 32 minutes for 2 units (8:58-9:30).
--- NOTE | 2024-07-23 11:14 | PDOC.CMPRO ---
Date of service: 07/23/24 Time of Service: 11:14 Care Management Progress Note Progress Note Text Progress Note Text: Les was sitting up on the side of his bed, eating lunch, when CM met with him earlier today. He looked well. Had cleaned up and shaved. He stated he is feeling a little better, but that his heart rate still goes up too high whenever he is active. He is not sure what is causing that. He has not been sleeping well, but does not want to take an aid for sleep, because he is trying not to drink and he is afraid a sleep aid may cause cravings. CM encouraged him to speak with his provider about that. Les is likely being transferred to the med surg floor today. He is aware that this means his status is improving. Discharge Potential Discharge Needs: Consult Consult Services Needed: Cardiology (Needs to establish with PCP and cardiology) and PCP F/U Appt Anticipated Barriers to Discharge: None Identified Patient/Family Education Needs: Review discharge instructions, discuss Ask Me Three Transportation: Private vehicle Plan: Anticipate that Les will be discharged with no new services. He will f/u with his new PCP at an appointment made for him prior to discharge. He may need cardiology f/u as well. He will continue per the prescribed plan of care. He will transport home in his own vehicle, which he drove to the ER. CM will continue to follow and to update the plan as needed. SDOH(Care Management) Screening Will the Patient Participate in the Screening?: Yes Do you worry about having a steady place to live?: no In the past 12 months, have you had to go without electric, gas, oil or water in your home?: no Have you or anyone in your house had to go without enough food to eat?: no Has lack of transportation kept you from medical appointments or from doing things needed for daily living?: no Has anyone in your support network made you feel unsafe for any reason?: no
[2024-07-23] MEDS: Metoprolol 5 MG/5 ML VIAL IVP (14:10)
--- NOTE | 2024-07-23 14:19 | PTTR_ITS ---
PT Notes Visit Reasons: HEART FAILURE, A FIB WITH RAPID RATE Inpatient Physical Therapy Treatment [facility] Date:07-23-2024 PRECAUTIONS:Telemetry. Monitor HR throughout. SUBJECTIVE: Pt reports he is feeling better but still concerned that he does not know why his heart is going so high when he moves around. OBJECTIVE:pt presented awake lying in bed eager to move around.? PAIN: denies VITALS: monitored via telemetry heart rate (112-131)while ambulating. immediately after stopping activity pt heart rate spikes to 151 then slowly decreases to (98-115); Oxygen saturation >95% throughout session Therapeutic Activities (17567): Direct one-on-one instruction in dynamic activities to improve functional performance. ?? functional ambulation with out AD level surfaces 400 feet x2 , 100 feet x 1 with sit rests between and stand rest with cues for breath control every 100 feet. Stairs: 13 steps with 1 rail supervision reciprocal pattern with stand rest every 5 steps for pacing and stand rest at top. Pt heart rate with pacing (127- 151). Pt noted mild MERAZ after descending stairs. sit rest reduced HR to 112 then able to ambulate 100 feet ASSESSMENT:?Pt demonstrating increase tolerance to functional tasks with only one report of dyspnea after descending stairs. education provided to pt regarding pacing on stairs and while walking to increase his distance of walking with out MERAZ. Pt educated in may take him longer initially to walk or perform the stairs however at the end of the task he will overall feel better and require a shorter recovery period.Next session will initiate session with warm up and end session with cool down program. Pt also encouraged to be out of bed in upright position/seated instead of lying in bed. Pt requires HOB elevated to >25 degrees to alleviate SOB when supine. Pt denied headache, chest pain or lightheaded/dizziness during this session. PLAN: continued skilled PT 1-2 times per day for functional mobility , functional activity tolerance, pacing and breath control techniques until appropriate for discharge TREATMENT CODE/TIME: 86874 x 35mins for 2 units/ [id number] DISCHARGE RECOMMENDATION: Home with no PT services when medically appropriate for discharge. Pt would benefit from cardiac rehab program.
[2024-07-23] MEDS: Amiodarone in Dextrose 360 MG/200 ML BAG 33.333 MG IV ×2 (14:40→18:11)
--- NOTE | 2024-07-23 16:11 | CHAPLAIN ---
I had a brief visit with Les this morning. He was pleasant and engaged in a conversation. I explained my role and offered support.
[2024-07-23] MEDS: Nicotine 2 MG GUM CH (20:51)
[2024-07-24] VITALS (27 sets, daily range): BP systolic 105–132; BP diastolic 64–114; PULSE 73–108; RESP 12–31; TEMP 36.4–36.7; O2SAT 92–98
[2024-07-24] MEDS: Amiodarone in Dextrose 360 MG/200 ML BAG 16.667 MG IV (02:01)
[2024-07-24] MEDS: Furosemide 20 MG TAB PO ×2 (08:17→15:38)
[2024-07-24] MEDS: Miconazole 2% Topical Powder 85 GM BTL TP ×2 (08:17→20:05)
[2024-07-24] MEDS: Enoxaparin 60 MG/0.6 ML SYR SC (08:18)
[2024-07-24] MEDS: Multivitamin TAB 1 TAB PO (08:18)
[2024-07-24] MEDS: Potassium Chloride 20 MEQ TABCR PO ×2 (08:18→20:05)
[2024-07-24] MEDS: Mylanta Suspension 30 ML CUP PO (08:19)
[2024-07-24] MEDS: Normal Saline Flush 10 ML SYR IVP ×3 (08:20→22:41)
[2024-07-24 10:27] LABS: Abs Immature Grans 0.02 10^3/uL (0.0-0.06); Absolute Basophil Count 0.03 10^3/uL (0.0-0.2); Absolute Eosinophil Count 0.06 10^3/uL (0.0-0.7); Absolute Lymphocyte Count 1.14 10^3/uL (1.2-3.4); Absolute Neutrophil Count 6.34 10^3/uL (1.2-6.7); Basophils % 0.4 %; Eosinophils % 0.7 %; HCT 45.7 % (40.0-50.0); HGB 15.7 g/dL (13.5-17.5); Immature Grans % 0.2 %; Lymphocytes % 13.9 %; MCH 33.5 pg (27.0-33.0); MCHC 34.4 % (32.0-36.0); MCV 97 fL (80-95); MPV 8.7 fL (8.0-11.0); Monocytes % 7.3 %; Neutrophils % 77.5 %; Platelet Count 229 10^3/uL (130-400); RBC 4.69 10^6/uL (4.36-5.78); RDW 13.2 % (11.8-14.1); RDW-SD 47.2 fL; WBC 8.19 10^3/uL (4.4-10.8)
[2024-07-24 11:01] LABS: ALT 45 U/L (16-63); AST 23 U/L (15-37); Albumin 2.9 g/dL (3.4-5.0); Alkaline Phosphatase 86 U/L (46-116); Anion Gap 7.9 mmol/L (3-11); BUN 20 mg/dL (7-18); Bilirubin, Total 0.56 mg/dL (0.2-1.0); CO2 28.1 mmol/L (21.0-32.0); Calcium 8.8 mg/dL (8.5-10.1); Chloride 106 mmol/L (98-107); Glucose 143 mg/dL (74-106); Potassium 4.5 mmol/L (3.5-5.1); Sodium 142 mmol/L (136-145); Total Protein 6.7 g/dL (6.4-8.2)
--- NOTE | 2024-07-24 12:07 | PTTR_ITS ---
PT Notes Visit Reasons: HEART FAILURE, A FIB WITH RAPID RATE Inpatient Physical Therapy Treatment Note [facility] Date:07-24-2024 PRECAUTIONS:Telemetry. Monitor HR throughout. SUBJECTIVE: Pt reports he is feeling worse today.He stated he was up all night . He stated they were adjusting his medication and when his heartrate went int the 70s he felt awful so he did not get much sleep. OBJECTIVE:pt presented awake lying in bed eager to move around IV amiodarone infusing into LUE? PAIN: denies VITALS: monitored via telemetry heart rate (110-121)while ambulating. ; Oxygen saturation >95% throughout session Therapeutic Activities (94368): Direct one-on-one instruction in dynamic activities to improve functional performance. ?? functional ambulation with out AD level surfaces 400 feet x2 , with sit rests between and 1 stand rest with. Pt able to carry conversation . Stairs: 13 steps with 1 rail supervision reciprocal pattern with stand rest every 5 steps for pacing and stand rest at top. Pt heart rate with pacing (114- 127). Pt noted mild MERAZ after descending stairs. sit rest reduced HR to 112 then able to ambulate 100 feet ASSESSMENT:?Pt demonstrating increase tolerance to functional tasks with only one report of dyspnea after descending stairs. education provided to pt regarding pacing on stairs and while walking to increase his distance of walking with out MERAZ. Pt educated in may take him longer initially to walk or perform the stairs however at the end of the task he will overall feel better and require a shorter recovery period. Next session will initiate session with warm up and end session with cool down program. Pt also encouraged to be out of bed in upright position/seated instead of lying in bed. Pt requires HOB elevated to >25 degrees to alleviate SOB when supine. Pt denied headache, chest pain or lightheaded/dizziness during this session. PLAN: continued skilled PT 1-2 times per day for functional mobility , functional activity tolerance, pacing and breath control techniques until appropriate for discharge TREATMENT CODE/TIME: 70294 x 27mins for 2 units/ [id number] DISCHARGE RECOMMENDATION: Home with no PT services when medically appropriate for discharge. Pt would benefit from cardiac rehab program.
--- NOTE | 2024-07-24 15:02 | W.PM.PROGNOT ---
Date of Service Date of service: 07/24/24 Time of Service: 09:40 Assessment and Plan Assessment and plan (1) Acute HFrEF (heart failure with reduced ejection fraction): Status: Acute Assessment and plan: Continue daily PO lasix order. follow K+ and M++ on diuretic Continue cardiac monitoring Echocardiogram final read reveals no valvular disease but global hypokinesis with ejection fraction 30 to 35%. HR now stabilized on amiodarone. Will ask cardiac rehab to see the patient since he makes qualifications for heart failure with ejection fraction of 35% or less. Patient was previously engaged with [facility] prior to his stopping following up with doctors up some 10 years ago. An appointment has been made for him to follow-up in [facility] on July 31 at 9:20 AM with Estefany Olivier NP Patient continues physical therapy Possible discharge late this or Saturday. (2) Atrial fibrillation with RVR: Status: Acute Assessment and plan: Much more stable on amiodarone at this time. Transition to amiodarone 200 mg p.o. 3 times daily with completion of intravenous loading. Continue continuous telemetry monitoring Transfer orders entered to transfer to [facility] out of the ICU. (3) Arrhythmia: Start date: 07/22/24 Status: Acute Assessment and plan: Wide-complex tachycardia likely aberrant reentry phenomenon, not repeated since the first day of admission. Continue cardiac monitoring while loading amiodarone (4) Alcohol abuse: Status: Chronic Assessment and plan: CIWA scoring per protocol. There has been no administration of benzodiazepines. Due to the patient's lack of sleeping, we will give him Ativan 1 mg at bedtime. Not a as needed but rather scheduled med. He has not slept well since he has arrived here in the hospital (5) Poor dentition: Status: Acute Assessment and plan: Discussed with patient Recommend outpatient dental evaluation as dental and gum health is associated with heart health (6) Umbilical hernia without obstruction and without gangrene: Status: Acute Assessment and plan: Surgical evaluation as an outpatient. No urgency at this time. (7) Morbid obesity: Status: Acute Assessment and plan: Patient may possibly have sleep apnea which may be contributing to caloric intake (8) Bilateral leg edema: Status: Acute Assessment and plan: Continue diuresis Patient will remain at bedrest edema may worsen Continue DVT prophylaxis with once daily low molecular weight heparin. Discussed with pharmacy. (9) On deep vein thrombosis (DVT) prophylaxis: Status: Acute Assessment and plan: Low molecular weight heparin once daily. This is discussed with pharmacy. (10) Hyperglycemia: Status: Acute Assessment and plan: hemoglobin A1c normal. No evidence of diabetes (11) Elevated d-dimer: Status: Acute Assessment and plan: CT pulmonary angiogram was negative for signs of pulmonary emboli. (12) Adrenal nodule: Status: Acute Assessment and plan: Plan for evaluation as outpatient with possible MRI and appropriate consultation Subjective Subjective Interval history since last seen: Clinical course reviewed including notes, orders, labs, vitals, meds, imaging, and cultures. Care is discussed with primary nurse. Potassium is normal level this morning @ 4.5. Loaded on amiodarone IV load initiated yesterday completing this afternoon. Patient has had a good heart rate response with his heart rates being stable in the 80s and 90s. No further spikes in heart rate to 140s or 150s when sitting upright or standing erect. Patient reports that the trouble he had exhaling is now gone. He said it went away last evening. It could be cardiac rate related. He did not receive any nebulizer therapy. He has had 2 stools yesterday and today. He is not sleeping well. He states he has not had a good night sleep since he has been in the hospital. He is very worried and nervous. Benzodiazepine alcohol withdrawal protocol ongoing, but the patient has not received any benzodiazepine for withdrawal. It was discussed in detail with the patient regarding his status and that when the IV amiodarone finishes loading, he will be transferred to the floor later today. He has had a good response. A 14 point review of systems was performed and negative except as noted below and in the HPI. Exam Narrative Exam Narrative: Patientevaluated in the ICU and is alert and oriented x 3 and in no acute distress. Exam today is essentially without clinical change. HEENT: Neck supple, MM pink and moist, conjunctiva non-injected, sclera non-icteric, Pupils equal and reactive to light symmetrically, no JVD, no A waves. No thyromegaly. No carotid bruit. Patient is missing his maxillary incisors and canine teeth. He has multiple molars with active caries at this time. He has a small posterior airway possibly class III-IV CHEST: Bilaterally symmetrical with inspiration and expiration. No use of accessory muscles of respiration. No nasal flaring. RESP: Distant breath sounds secondary to body habitus, bilateral bibasilar crackles noted no rhonchi or wheeze, no pleural friction rub, no post-tussive crackles or apical rales. COR: Distant tones and difficult to appreciate, RRR without murmur, normal S1, S2, no rub or gallop ABDOMEN: Obese grossly distended and mildly tympanitic, no peritoneal signs. Bowel sounds are active diffusely. There is a periumbilical defect which is easily reducible. Organomegaly cannot be defined due to body habitus, No abdominal bruit, no masses, no tenderness on deep abdominal palpation. G/U: deferred Rectal: deferred MUSCULOSKELETAL: Bilaterally symmetrical, no muscle belly tenderness or mass DERMIS: Skin warm and dry, no ulcers or rashes, EXTREMITIES: No cyanosis, clubbing but 3+ pitting edema in the lower extremity bilaterally. NEUROLOGICAL: Cranial nerves intact II-XII without notable deficit, No peripheral neurosensory or motor deficits noted. LYMPH: No anterior or posterior cervical, no supraclavicular, No axillary, no epitrochlear or femoral lymphadenopathy. Objective Last Vital Signs Temp 36.4 C L 07/24/24 12:48 Pulse 99 H 07/24/24 12:48 Resp 31 H 07/24/24 12:48 BP 116/87 07/24/24 12:48 Pulse Ox 94 07/24/24 12:48 Laboratory Results - last 24 hr 07/24/24 10:17 WBC 8.19 RBC 4.69 Hgb 15.7 Hct 45.7 MCV 97 H MCH 33.5 H MCHC 34.4 RDW 13.2 Plt Count 229 MPV 8.7 Immature Gran % 0.2 Neutrophils % 77.5 Lymphocytes % 13.9 Monocytes % 7.3 Eosinophils % 0.7 Basophils % 0.4 Nucleated RBC % 0.0 Absolute Neutrophils 6.34 Absolute Lymphocytes 1.14 L Absolute Monocytes 0.60 Absolute Eosinophils 0.06 Absolute Basophils 0.03 Sodium 142 Potassium 4.5 Chloride 106 Carbon Dioxide 28.1 Anion Gap 7.9 BUN 20 H Creatinine 1.0 Est GFR (CKD-EPI 2020) 85.10 Glucose 143 H Calcium 8.8 Total Bilirubin 0.56 AST 23 ALT 45 Alkaline Phosphatase 86 Total Protein 6.7 Albumin 2.9 L PAWSS Have you Been Recently Intoxicated or Drunk Within the Last 30 days?: No Have you Ever Experienced Previous Episodes of Alcohol Withdrawal?: No Have you ever Experienced Withdrawal Seizures?: No Have you ever Experienced Delirium Tremens(DT)s?: No Have you ever undergone Alcohol Rehabilitation Treatment (i.e, inpt ot outpatient treatment programs)?: No Have you ever Experienced Blackouts?: No Have you ever Combined Alcohol with other Downers within the last 90 days?: No Have you ever Combined Alcohol with any other Substance of Abuse during the last 90 days?: No Evidence of Increased Autonomic Activity (i.e. HR>120, tremor, sweating, agitation, nausea)?: No Result: 0 Time Spent with Patient Time Spent with Patient: >50 minutes Time was spent: preparing to see the patient(eg.review tests), obtaining and/or reviewing separately otained hiistory, ordering medications,tests, procedures, referring, communicating with other health healthcare network pricing consultant, indepentently interpreting results, counseling the patient and care coordination
--- NOTE | 2024-07-24 15:26 | CMPROGNOTE_ITS ---
Date of service: 07/24/24 Time of Service: 11:30 Care Management Progress Note Progress Note Text Progress Note Text: Les was lying in bed trying to sleep, but was roused by CM at the door, when CM met with him earlier today. He said he is still not feeling great. He stated that the medication he is getting IV (amiodarone) really made him feel lousy, especially when he first started on it. He is hoping that once the med is completed this afternoon, he will feel better. He is noticing that his HR is lower, but it sometimes is going too low, and still sometimes too high. He has really started to keep his eye on the monitor with every movement. PT recommended Cardiac Rehab, and that office was notified, and has done a liason visit. They would like for the referral to come from his PCP, to ensure that he is following up. He needs a PCP to receive cardiac rehab. Hospitalist was notified of this, as was new PCP office. Appointment made for Les by CM, with Estefany Olivier at [facility] for Saturday07/31/24 at 0920. CM wrote this out and handed it to Les, also gave appt details to his nurse in ICU. Discharge Potential Discharge Needs: PCP F/U Appt and Other (cardiology consult and cardiac rehab) Anticipated Barriers to Discharge: None Identified Patient/Family Education Needs: Review discharge instructions, discuss Ask Me Three Transportation: Private vehicle Plan: Anticipate that Les will be discharged with no new services. He will f/u with his new PCP, Estefany Olivier, on 07/31 at 0920. He will need a cardiology consult as outpatient as well. He will continue per the prescribed plan of care. He will transport home in his own vehicle, which he drove to the ER. CM will continue to follow and to update the plan as needed. SDOH(Care Management) Screening Will the Patient Participate in the Screening?: Yes Do you worry about having a steady place to live?: no In the past 12 months, have you had to go without electric, gas, oil or water in your home?: no Have you or anyone in your house had to go without enough food to eat?: no Has lack of transportation kept you from medical appointments or from doing things needed for daily living?: no Has anyone in your support network made you feel unsafe for any reason?: no
--- NOTE | 2024-07-24 17:24 | PT.INTREAT ---
PT Notes Visit Reasons: HEART FAILURE, A FIB WITH RAPID RATE Inpatient Physical Therapy Treatment Note [facility] Date:07-24-2024 PRECAUTIONS:Telemetry. Monitor HR throughout. SUBJECTIVE: Les states that he is changing rooms. He is agreeable to PT intervention. OBJECTIVE: ? PAIN: denies VITALS: monitored via telemetry Therapeutic Exercise (64111): Direct one-on-one instruction in dynamic activities to improve functional performance. ?? Ambulates 300'x1 and 100'x1, with cues for pacing throughout. Took several standing breaks, and educated on RPE scale, with goal of < or = 4 throughout session. Had patient navigate various obstacles in room with supervision only; navigates around furniture, in bathroom, and demonstrates 180* turns all without LOB. ASSESSMENT:?Tolerating progressive ambulation well. Continue working on pacing with goal of RPE ~4 throughout. Demonstrates good safety awareness and balance, and appropriate for in-room independent ambulation. PLAN: continued skilled PT 1-2 times per day for functional mobility , functional activity tolerance, pacing and breath control techniques until appropriate for discharge TREATMENT CODE/TIME: 96337 ([id number]) DISCHARGE RECOMMENDATION: Home with no PT services when medically appropriate for discharge. Pt would benefit from cardiac rehab program.
[2024-07-24] MEDS: LORazepam 1 MG TAB PO (20:05)
[2024-07-24] MEDS: Losartan 25 MG TAB PO (20:05)
[2024-07-24] MEDS: Amiodarone 200 MG TAB PO (20:05)
[2024-07-25 03:29] VITALS: BP 128/79; PULSE 75; RESP 18; TEMP 36.2; O2SAT 95
[2024-07-25 06:37] LABS: Abs Immature Grans 0.01 10^3/uL (0.0-0.06); Absolute Basophil Count 0.04 10^3/uL (0.0-0.2); Absolute Eosinophil Count 0.12 10^3/uL (0.0-0.7); Absolute Lymphocyte Count 1.33 10^3/uL (1.2-3.4); Absolute Monocyte Count 0.83 10^3/uL (0.1-0.8); Basophils % 0.5 %; Eosinophils % 1.5 %; HCT 45.9 % (40.0-50.0); HGB 15.1 g/dL (13.5-17.5); Immature Grans % 0.1 %; Lymphocytes % 16.6 %; MCH 33.1 pg (27.0-33.0); MCHC 32.9 % (32.0-36.0); MCV 101 fL (80-95); MPV 8.6 fL (8.0-11.0); Monocytes % 10.3 %; Platelet Count 213 10^3/uL (130-400); RBC 4.56 10^6/uL (4.36-5.78); RDW 13.2 % (11.8-14.1); RDW-SD 49.1 fL; WBC 8.03 10^3/uL (4.4-10.8)
[2024-07-25 07:09] LABS: Magnesium 2.4 mg/dL (1.8-2.4)
[2024-07-25 07:12] LABS: Anion Gap 4.2 mmol/L (3-11); BUN 15 mg/dL (7-18); CO2 27.8 mmol/L (21.0-32.0); Calcium 8.9 mg/dL (8.5-10.1); Chloride 107 mmol/L (98-107); Glucose 132 mg/dL (74-106); Potassium 4.2 mmol/L (3.5-5.1); Sodium 139 mmol/L (136-145)
[2024-07-25] MEDS: Losartan 25 MG TAB PO (08:13)
[2024-07-25] MEDS: Furosemide 20 MG TAB PO ×2 (08:13→15:52)
[2024-07-25] MEDS: Enoxaparin 60 MG/0.6 ML SYR SC (08:13)
[2024-07-25] MEDS: Amiodarone 200 MG TAB PO ×3 (08:13→19:50)
[2024-07-25] MEDS: Potassium Chloride 20 MEQ TABCR PO ×2 (08:13→19:49)
[2024-07-25] MEDS: Multivitamin TAB 1 TAB PO (08:13)
[2024-07-25] MEDS: Miconazole 2% Topical Powder 85 GM BTL TP ×2 (08:14→19:51)
[2024-07-25] MEDS: Normal Saline Flush 10 ML SYR IVP ×2 (08:14→19:52)
[2024-07-25 08:45] VITALS: BP 117/72; PULSE 95; RESP 16; TEMP 36.5; O2SAT 93
[2024-07-25 11:40] VITALS: BP 121/89; PULSE 56; RESP 20; TEMP 36.9; O2SAT 94
--- NOTE | 2024-07-25 13:59 | PT.INTREAT ---
Date of service: 07/25/24 Time of Service: 10:15 PT Notes Visit Reasons: HEART FAILURE, A FIB WITH RAPID RATE Inpatient Physical Therapy Treatment Note [facility] Date: 07/25/2025 PRECAUTIONS:Telemetry. Monitor HR throughout. SUBJECTIVE: Slept better last night. Is agreeable to PT intervention. Has to do a lot of stairs at home, lives on second floor. OBJECTIVE: ? PAIN: Denies pain VITALS: monitored via telemetry Therapeutic Activities ([id number]): Direct one-on-one instruction in dynamic activities to improve functional performance. ?? Ambulates 300'x1 and 50'x2, with continued cues for pacing throughout. Able to navigate various obstacles with supervision only; navigates around furniture and demonstrates 180* turns all without LOB. Stairs: Up/ down 20 steps (12 - 4 inch and 8- 6 inch steps) with handrails and SBA. ASSESSMENT:?Tolerating progressive ambulation very well, without complaints of needing to stop for a break. Continue working on pacing with goal of RPE ~4 throughout. Demonstrates good safety awareness and balance. PLAN: continued skilled PT 1-2 times per day for functional mobility , functional activity tolerance, pacing and breath control techniques until appropriate for discharge TREATMENT CODE/TIME: 33148 x 1, 10:15 to 10:35 (20') DISCHARGE RECOMMENDATION: Home with no PT services when medically appropriate for discharge. Pt would benefit from cardiac rehab program.
--- NOTE | 2024-07-25 15:27 | PGE_ITS ---
Date of Service Date of service: 07/25/24 Time of Service: 15:27 Assessment and Plan Assessment and plan (1) Acute HFrEF (heart failure with reduced ejection fraction): Status: Acute Assessment and plan: Continue daily PO lasix order. follow K+ and M++ on diuretic Continue cardiac monitoring Echocardiogram final read reveals no valvular disease but global hypokinesis with ejection fraction 30 to 35%. HR now stabilized on amiodarone, now on oral. Will need referral from primary care doctor for cardiac rehab. Patient was previously engaged with [facility] prior to his stopping following up with doctors up some 10 years ago. An appointment has been made for him to follow-up in [facility] on July 31 at 9:20 AM with Estefany Olivier NP Referral sent to [facility] Cardiology for OP appointment. Patient continues physical therapy Possible discharge Saturday if PT clears keeping in mind his steps at home. (2) Atrial fibrillation with RVR: Status: Acute Assessment and plan: Much more stable on amiodarone at this time. continue amiodarone 200 mg p.o. 3 times daily Continue continuous telemetry monitoring (3) Arrhythmia: Start date: 07/22/24 Status: Acute Assessment and plan: Wide-complex tachycardia likely aberrant reentry phenomenon, not repeated since the first day of admission. (4) Alcohol abuse: Status: Chronic Assessment and plan: CIWA scoring per protocol. There has been no administration of benzodiazepines. Due to the patient's lack of sleeping, we will give him Ativan 1 mg at bedtime. Not a as needed but rather scheduled med. He has not slept well since he has arrived here in the hospital this is reviewed with patient primary nurse. (5) Poor dentition: Status: Acute Assessment and plan: Discussed with patient Recommend outpatient dental evaluation as dental and gum health is associated with heart health (6) Umbilical hernia without obstruction and without gangrene: Status: Acute Assessment and plan: Surgical evaluation as an outpatient. No urgency at this time. (7) Morbid obesity: Status: Acute Assessment and plan: Patient may possibly have sleep apnea which may be contributing to caloric intake (8) Bilateral leg edema: Status: Acute Assessment and plan: resolved (9) On deep vein thrombosis (DVT) prophylaxis: Status: Acute Assessment and plan: Low molecular weight heparin once daily. This is discussed with pharmacy. (10) Hyperglycemia: Status: Acute Assessment and plan: hemoglobin A1c normal. No evidence of diabetes (11) Elevated d-dimer: Status: Acute Assessment and plan: CT pulmonary angiogram was negative for signs of pulmonary emboli. (12) Adrenal nodule: Status: Acute Assessment and plan: Plan for evaluation as outpatient with possible MRI and appropriate consultation Subjective Subjective Interval history since last seen: Clinical course reviewed including notes, orders, labs, vitals, meds, imaging, and cultures. Care is discussed with primary nurse. Potassium is normal level this morning @ 4.2. Loaded on amiodarone IV yesterday, converted to PO amiodarone yesterday. HR appears well controlled. Continues engaging with PT He took a shower today and feels pretty well. No issues with standing erect, no SOB. He is not sleeping well. He states he has not had a good night sleep since he has been in the hospital. He is very worried and nervous. Ativan ordered last pm as scheduled med however not given or offered. Benzodiazepine alcohol withdrawal protocol ongoing, but the patient has not received any benzodiazepine for withdrawal. It was discussed in detail with the patient regarding his status and plans for outpatient follow up, scheduled at [facility] on Jul 31 and referral sent to [facility] Cardiology for OP appointment. Discharge planned on Saturday. He continues to work with PT as he has many stairs at home. A 14 point review of systems was performed and negative except as noted below and in the HPI. Exam Narrative Exam Narrative: Patientevaluated on med surg. He is alert and oriented x 3 and in no acute distress. Exam today is essentially without clinical change. He took a shower and is walking about the room. HEENT: Neck supple, MM pink and moist, conjunctiva non-injected, sclera non- icteric, CHEST: Bilaterally symmetrical with inspiration and expiration. No use of accessory muscles of respiration. No nasal flaring. RESP: Distant breath sounds secondary to body habitus, bilateral bibasilar crackles noted no rhonchi or wheeze, no pleural friction rub, no post-tussive crackles or apical rales. COR: Distant tones and difficult to appreciate, RRR without murmur, normal S1, S2, no rub or gallop Telemetry reviewed and noted. ABDOMEN: Obese grossly distended and mildly tympanitic, no peritoneal signs. Bowel sounds are active diffusely. There is a periumbilical defect which is easily reducible. Organomegaly cannot be defined due to body habitus, No abdominal bruit, no masses, no tenderness on deep abdominal palpation. G/U: deferred Rectal: deferred MUSCULOSKELETAL: Bilaterally symmetrical, no muscle belly tenderness or mass DERMIS: Skin warm and dry, no ulcers or rashes, EXTREMITIES: No cyanosis, clubbing pitting edema in the lower extremity bilaterally has resolved. NEUROLOGICAL: Cranial nerves intact II-XII without notable deficit, No peripheral neurosensory or motor deficits noted. LYMPH: No anterior or posterior cervical, no supraclavicular, No axillary, no epitrochlear or femoral lymphadenopathy. Objective Last Vital Signs Temp 36.9 C 07/25/24 11:40 Pulse 56 L 07/25/24 11:40 Resp 20 07/25/24 11:40 BP 121/89 07/25/24 11:40 Pulse Ox 94 07/25/24 11:40 Laboratory Results - last 24 hr 07/25/24 06:20 WBC 8.03 RBC 4.56 Hgb 15.1 Hct 45.9 MCV 101 H D MCH 33.1 H MCHC 32.9 RDW 13.2 Plt Count 213 MPV 8.6 Immature Gran % 0.1 Neutrophils % 71.0 Lymphocytes % 16.6 Monocytes % 10.3 Eosinophils % 1.5 Basophils % 0.5 Nucleated RBC % 0.0 Absolute Neutrophils 5.70 Absolute Lymphocytes 1.33 Absolute Monocytes 0.83 H Absolute Eosinophils 0.12 Absolute Basophils 0.04 Sodium 139 Potassium 4.2 Chloride 107 Carbon Dioxide 27.8 Anion Gap 4.2 BUN 15 Creatinine 1.0 Est GFR (CKD-EPI 2020) 85.10 Glucose 132 H Calcium 8.9 Magnesium 2.4 PAWSS Have you Been Recently Intoxicated or Drunk Within the Last 30 days?: No Have you Ever Experienced Previous Episodes of Alcohol Withdrawal?: No Have you ever Experienced Withdrawal Seizures?: No Have you ever Experienced Delirium Tremens(DT)s?: No Have you ever undergone Alcohol Rehabilitation Treatment (i.e, inpt ot outpatient treatment programs)?: No Have you ever Experienced Blackouts?: No Have you ever Combined Alcohol with other Downers within the last 90 days?: No Have you ever Combined Alcohol with any other Substance of Abuse during the last 90 days?: No Evidence of Increased Autonomic Activity (i.e. HR>120, tremor, sweating, agit ation, nausea)?: No Result: 0 Time Spent with Patient Time Spent with Patient: 35-49 minutes Time was spent: preparing to see the patient(eg.review tests), obtaining and/or reviewing separately otained hiistory, ordering medications,tests, procedures, referring, communicating with other health prompt care rn, indepentently interpreting results, counseling the patient and care coordination
[2024-07-25 15:38] VITALS: BP 161/101; PULSE 95; RESP 19; TEMP 36; O2SAT 95
[2024-07-25] MEDS: LORazepam 1 MG TAB PO (19:50)
[2024-07-25 19:59] VITALS: BP 132/89; PULSE 64; RESP 18; TEMP 36.1; O2SAT 96
[2024-07-25 23:15] VITALS: BP 140/98; PULSE 89; RESP 14; TEMP 36.4; O2SAT 95
[2024-07-26 03:10] VITALS: BP 154/108; PULSE 88; RESP 14; TEMP 36.1; O2SAT 95
[2024-07-26 06:51] LABS: Abs Immature Grans 0.02 10^3/uL (0.0-0.06); Absolute Basophil Count 0.05 10^3/uL (0.0-0.2); Absolute Eosinophil Count 0.13 10^3/uL (0.0-0.7); Absolute Lymphocyte Count 1.45 10^3/uL (1.2-3.4); Absolute Monocyte Count 0.83 10^3/uL (0.1-0.8); Absolute Neutrophil Count 4.94 10^3/uL (1.2-6.7); Basophils % 0.7 %; Eosinophils % 1.8 %; HCT 46.5 % (40.0-50.0); HGB 15.7 g/dL (13.5-17.5); Immature Grans % 0.3 %; Lymphocytes % 19.5 %; MCH 33.3 pg (27.0-33.0); MCHC 33.8 % (32.0-36.0); MCV 99 fL (80-95); MPV 8.9 fL (8.0-11.0); Monocytes % 11.2 %; Neutrophils % 66.5 %; Platelet Count 222 10^3/uL (130-400); RBC 4.72 10^6/uL (4.36-5.78); RDW-SD 47.3 fL; WBC 7.42 10^3/uL (4.4-10.8)
[2024-07-26 07:09] LABS: Anion Gap 6.1 mmol/L (3-11); BUN 15 mg/dL (7-18); CO2 27.9 mmol/L (21.0-32.0); CREATININE 0.9 mg/dL (0.70-1.30); Calcium 9.3 mg/dL (8.5-10.1); Chloride 104 mmol/L (98-107); Estimated GFR 96.57 (mL/min/1.73m2); Glucose 96 mg/dL (74-106); Potassium 4.4 mmol/L (3.5-5.1); Sodium 138 mmol/L (136-145)
[2024-07-26 07:13] LABS: Magnesium 2.3 mg/dL (1.8-2.4)
[2024-07-26 08:03] VITALS: BP 138/104; PULSE 91; RESP 18; TEMP 37.2; O2SAT 94
[2024-07-26] MEDS: Multivitamin TAB 1 TAB PO (08:16)
[2024-07-26] MEDS: Potassium Chloride 20 MEQ TABCR PO (08:17)
[2024-07-26] MEDS: Furosemide 20 MG TAB PO (08:17)
[2024-07-26] MEDS: Enoxaparin 60 MG/0.6 ML SYR SC (08:17)
[2024-07-26] MEDS: Losartan 25 MG TAB PO ×2 (08:17→09:21)
[2024-07-26] MEDS: Amiodarone 200 MG TAB PO ×2 (08:17→13:24)
[2024-07-26] MEDS: Miconazole 2% Topical Powder 85 GM BTL TP (08:18)
[2024-07-26] MEDS: Normal Saline Flush 10 ML SYR IVP (08:18)
[2024-07-26 11:41] VITALS: BP 144/82; PULSE 74; RESP 16; TEMP 36.4; O2SAT 95
--- NOTE | 2024-07-26 12:25 | CMDISCH_ITS ---
Date of service: 07/26/24 Time of Service: 12:25 LACE Index Scoring Tool Questions: Length of Stay (in days): 4 - 6 Was the patient admitted via the E.D.?: Yes E.D. Visits: 1 Answers: Total Score: 8 Risk of Readmission: Low Risk Care Management Discharge Plan Reason for Hospitalization: afib with rapid ventricular response- presenting symptom extreme shortness of breath Discharge Plan: Les is discharged home with no new services. An appointment bird s been made with a new PCP, Genie Olivier at [facility] for 07/31 at 0920. A referral has been sent to [facility] cardiology, and Les should f/u with a phone call to them if no appointment made within the week. It is recommended that Les attend Cardiac Rehab. His new PCP was reached out to by CM to relay some basic information about Les, and the need for PCP referral to cardiac rehab. Les is being discharged on many new meds, and has been educated about these meds by provider and nursing staff. Les will transport himself home in the car he drove here. Patient/Family Education Needs: Review of d/c instructions, activity, limitations, f/u plan and Ask me 3 SDOH Health Related Social Needs: No Data to Display
--- NOTE | 2024-07-26 13:05 | DSE_ITS ---
Date of service: 07/26/24 Time of Service: 11:55 DS: Diagnosis Discharge Diagnosis (1) Acute HFrEF (heart failure with reduced ejection fraction): Status: Acute Asessment and Plan: stable dc on PO lasix (2) Atrial fibrillation with RVR: Status: Acute Asessment and Plan: rate now stable on amidarone prescriptions sent to pharmacy (3) Arrhythmia: Status: Acute Asessment and Plan: stable now, afib with controlled rate (4) Alcohol abuse: Status: Chronic Asessment and Plan: patient has not required any intervention while here drinks on average, 6 12 oz ivory lights nightly. counseling provided (5) Poor dentition: Status: Acute Asessment and Plan: advise dental evaluation due to cardiac-dental issues. (6) Umbilical hernia without obstruction and without gangrene: Status: Acute Asessment and Plan: stable, OP evaluation, non emergent (7) Morbid obesity: Status: Acute Asessment and Plan: patient lost significant amount of water weight during this hospitalization (8) Bilateral leg edema: Status: Acute Asessment and Plan: resolved. (9) On deep vein thrombosis (DVT) prophylaxis: Status: Acute Asessment and Plan: reolved at discharge (10) Hyperglycemia: Status: Acute Asessment and Plan: Hgb A1c 5.8 (11) Elevated d-dimer: Status: Acute Asessment and Plan: stable, CTA no PE (12) Adrenal nodule: Status: Acute Asessment and Plan: Needs OP workup wiht MRI Discharge Plan Disposition Patient Disposition: Home Condition: Fair Discharge Details Reason For Visit: HEART FAILURE, A FIB WITH RAPID RATE Admit Date/Time: 07/21/24 17:28 Admit Provider: Jn Squires Attending Provider: Jn Squires Primary Care Provider: Unknown,Unknown Hospital Course Hospital Course: Patient was admitted with a 30+ day history of progressive dyspnea. It became critical when he took in 5 minutes of breathlessness to tie each shoe. He pr esented to the emergency department was found to be in biventricular heart failure. He had significant anasarcic features with edema of the anterior abdominal wall as well as the bilateral lower extremities. His heart rate was in the 140s 150s. He rapidly desaturated with any exertion. He was markedly dyspneic with a respiratory rate as high as 30. He was in heart failure. Transthoracic echocardiogram revealed an ejection fraction of 30 to 35% with global hypokinesis. At the time of admission he denied chills fever nausea vomiting or diarrhea but increasing breathlessness and a numbness feeling that he was going to soon. In the emergency department, he was stabilized and since admission he has been aggressively diuresed. He has been transitioned to oral twice daily Lasix. His exercise tolerance has significantly improved and his labile heart rate has stabilized. Weight was attempted to be controlled with a diltiazem drip and conversion to oral diltiazem however this was not successful. Metoprolol IV push was given and the patient was started on amiodarone drip. He is converted from IV to oral amiodarone yesterday and is now on 200 mg p.o. 3 times daily. The patient has not seen a physician for over 10 years. He formerly was engaged with [employer]. We were able to arrange for a follow-up appointment for him on July 31 which she is planning on making. We have also entered a referral for him to [facility] cardiology. During the course of the admission, he did not have any significant signs of active ischemia and his troponins peaked at 90 and decreased rapidly. This was judged to be a demand phenomenon since he was very labile with his heart rate anywhere from 90-1 50. He does have atrial fibrillation. He had several episodes of what appeared to be an aberrant reentry pattern with wide-complex tachycardia. His electrolytes including potassium and magnesium were replaced at that time and since that occurrence and the IV amiodarone load, the patient has not had any similarly situated wide-complex tachycardias. At this time of discharge, the patient is concerned regarding the number of steps he has to enter his home. He clearly is in better functional shape at this time than he was at the time of admission but he is worried about the steps to entry and the steps within his residence. We are asking physical therapy to exercise him and comment on whether or not he is ready for discharge. Prescriptions are sent for the following agents: Amiodarone 200 mg p.o. 3 times daily #90 no refills Lasix 20 mg p.o. twice daily #60 no refills Potassium chloride slow release 20 mill equivalents 1 p.o. twice daily #60 no refills Patient should have a BMP at the time of his office visit on July 31 and medication refills will likely need to be dispensed at that time. I personally reviewed with patient the treatment plan, the discharge plan, medications and their schedules, side effects of the medications, how to seek a low salt diet, and the importance of primary care appointments and cardiology and cardiac rehab appointments. An opportunity to ask questions was made. All questions answered. Home Meds and New Rx's Prescriptions: New multivitamin [Multiple Vitamins] Tablet 1 tab PO DAILY 360 Days Qty: 360 0RF amiodarone [Pacerone] 200 mg Tablet 200 mg PO TID Qty: 90 0RF losartan 25 mg Tablet 50 mg PO DAILY Qty: 0 0RF furosemide 20 mg Tablet 20 mg PO BID@0830,1600 Qty: 0 0RF Renal Caps 1 mg Capsule 1 cap PO DAILY Qty: 60 0RF potassium chloride [Klor-Con M20] 20 mEq Tablet,Er Particles/Crystals 20 meq PO BID Qty: 0 0RF furosemide 20 mg tablet 20 mg PO BID Qty: 60 0RF potassium chloride 20 mEq tablet extended release 20 meq PO BID Qty: 60 0RF Continued aspirin 325 mg tablet 81 mg PO DAILY No Action ibuprofen 200 MG capsule 400 mg PO daily prn sildenafil [Viagra] 100 mg tablet 100 mg PO DAILY MDD 100 PRN (Reason: sexual activity) Qty: 30 4RF Discharge Instructions Stand Alone Forms: Nursing Discharge Form Referrals: CARDIOLOGY,[facility] [place] [OTHER] - (referral has been made to [facility] Cardiology. They should call you to set up an appointment. ) Estefany Olivier NP [NURSE PRACTITIONER] - 07/31/24 7:00 am (Please call the office to confirm your appointment time ) Activity:: Activity as Tolerated Equipment/Supplies:: No Equipment Needed Diet:: As Tolerated Discharge Orders Discharge Orders: Discharge Order (Routine); Ordered 07/26/24 Ordered By: Jn Squires DS: Summary Time Spent with Patient providing and/or coordinating discharge services: Greater than 30 minutes Status at Discharge Functional status at discharge: independent ambulation Overall status at discharge: patient is not back to baseline Mental Status: mental status grossly normal Speech and Movement: speech and movement normal Mood: congruent mood (a bit anxious) Affect: normal affect Quality:SDOH Health Related Social Needs: No Data to Display Exam Narrative Exam Narrative: Patientevaluated on med surg. He is alert and oriented x 3 and in no acute distress. Exam today is essentially without clinical change. He took a shower and is walking about the room. Somewhat nervous about discharge. HEENT: Neck supple, MM pink and moist, conjunctiva non-injected, sclera non- icteric, CHEST: Bilaterally symmetrical with inspiration and expiration. No use of accessory muscles of respiration. No nasal flaring. RESP: Distant breath sounds secondary to body habitus, bilateral bibasilar crackles noted no rhonchi or wheeze, no pleural friction rub, no post-tussive crackles or apical rales. COR: Distant tones and difficult to appreciate, RRR without murmur, normal S1, S2, no rub or gallop Telemetry reviewed and noted. ABDOMEN: Obese grossly distended and mildly tympanitic, no peritoneal signs. Bowel sounds are active diffusely. There is a periumbilical defect which is easily reducible. Organomegaly cannot be defined due to body habitus, No abdominal bruit, no masses, no tenderness on deep abdominal palpation. G/U: deferred Rectal: deferred MUSCULOSKELETAL: Bilaterally symmetrical, no muscle belly tenderness or mass DERMIS: Skin warm and dry, no ulcers or rashes, EXTREMITIES: No cyanosis, clubbing pitting edema in the lower extremity bilaterally has resolved. NEUROLOGICAL: Cranial nerves intact II-XII without notable deficit, No peripheral neurosensory or motor deficits noted. LYMPH: No anterior or posterior cervical, no supraclavicular, No axillary, no epitrochlear or femoral lymphadenopathy. Psych Mental Status: mental status grossly normal Speech and Movement: speech and movement normal Mood: congruent mood (a bit anxious) Affect: normal affect DS: Data Vitals/I&O Vitals and I&O: Vital Signs Temperature 36.4 C L 07/26/24 11:41 Temperature Source Tympanic 07/26/24 11:41 Pulse 74 07/26/24 11:41 Pulse 92 H 07/24/24 18:00 Respiratory Rate 16 07/26/24 11:41 Respiratory Effort Incrsd Work of Breathing 07/21/24 19:16 Respiratory Depth Deep 07/21/24 19:16 Respiratory Pattern Tachypnea 07/21/24 19:16 Blood Pressure 144/82 H 07/26/24 11:41 Blood Pressure Mean 116 07/24/24 15:49 Blood Pressure Position Supine 07/21/24 19:16 Pulse Oximetry 95 07/26/24 11:41 Oxygen Delivery Method Room Air 07/26/24 11:41 Oxygen Flow Rate 0 07/26/24 11:41 Pain Level 0 07/26/24 11:41 Comment no pain but pt states he is not feeling well at all 07/26/24 08:03 Intake & Output 07/25/24 07/26/24 07/26/24 23:59 11:59 23:59 Intake Total 540 / 540 490 / 490 Balance 540 / 540 490 / 490 Intake: IV 40 / 40 40 / 40 Oral 500 / 500 450 / 450 Other: Comment per pt Data Completed and Pending Labs on day of discharge: Labs from last 24 hours 07/26/24 06:28 WBC 7.42 RBC 4.72 Hgb 15.7 Hct 46.5 MCV 99 H MCH 33.3 H MCHC 33.8 RDW 13.0 Plt Count 222 MPV 8.9 Immature Gran % 0.3 Neutrophils % 66.5 Lymphocytes % 19.5 Monocytes % 11.2 Eosinophils % 1.8 Basophils % 0.7 Nucleated RBC % 0.0 Absolute Neutrophils 4.94 Absolute Lymphocytes 1.45 Absolute Monocytes 0.83 H Absolute Eosinophils 0.13 Absolute Basophils 0.05 Sodium 138 Potassium 4.4 Chloride 104 Carbon Dioxide 27.9 Anion Gap 6.1 BUN 15 Creatinine 0.9 Est GFR (CKD-EPI 2020) 96.57 Glucose 96 Calcium 9.3 Magnesium 2.3 PFSH All Active Problems Arrhythmia (Acute) Elevated d-dimer (Acute) Hyperglycemia (Acute) On deep vein thrombosis (DVT) prophylaxis (Acute) Bilateral leg edema (Acute) Morbid obesity (Acute) Umbilical hernia without obstruction and without gangrene (Acute) Poor dentition (Acute) Alcohol abuse (Chronic) Adrenal nodule (Acute) Acute HFrEF (heart failure with reduced ejection fraction) (Acute) Atrial fibrillation with RVR (Acute) Family History Mother No problems noted. Father Heart disease VALVE REPLACEMENT Sister Neoplasm CERVICAL Brother No problems noted. Brother No problems noted. Brother No problems noted. Brother No problems noted. Brother No problems noted. Social History Smoking/Tobacco Use Status: Current every day Smoking risk assessment performed?: Yes Alcohol Intake: current Alcohol Intake frequency: 3 or more drinks per day Alcohol type: beer Drug use: Never Substance use type: does not use Housing: apartment Do you feel safe at home: Yes Do you feel safe in your relationship?: Yes Time Spent with Patient Time Spent with Patient: 45-69 minutes Time was spent: preparing to see the patient(eg.review tests), obtaining and/or reviewing separately otained hiistory, ordering medications,tests, procedures, referring, communicating with other health inspector health care facilities, indepentently interpreting results, counseling the patient (requires extensive emotional support as patient is without friends or supportive family and this is daunting to him.) and care coordination
--- NOTE | 2024-07-26 13:19 | PTTR_ITS ---
Date of service: 07/26/24 Time of Service: 10:20 PT Notes Visit Reasons: HEART FAILURE, A FIB WITH RAPID RATE Inpatient Physical Therapy Treatment Note [facility] Date: 07/26/2024 ? PRECAUTIONS:Telemetry. Monitor HR throughout. SUBJECTIVE: Nervous about returning home. Has a lot of stair to get to his appt and is not sure he is going to be able to do them without getting out of breath. Does have some friends that he is going to try to contact to be with him when he is discharged to make sure he getting home safely. Did not feel OOB or in distr ess with performance of 2 flights of stairs while doing PT activity this morning. OBJECTIVE: ? PAIN: Denies pain VITALS: monitored via telemetry Therapeutic Activities ([id number]): Direct one-on-one instruction in dynamic activities to improve functional performance. ?? Ambulates 300'x1, with continued cues for pacing throughout, without an assistive device. Stairs: Up/ down 2 flights of stairs in stairwell today, with one hand rail and SBA/ CGA. Utilized reciprocating gait pattern going up stairs and had patient pe rform step to gait pattern going back down stairs for better control. ASSESSMENT:?Did not need to stop at any point due to SOB or feelings of distress. PLAN: Patient to contact his friends to assist with discharge to his apartment. Had questions and concerns regarding meds and continued out patient care that his was going to address with his supervising nurse or doctor. TREATMENT CODE/TIME: 28556, 10:20 to 10:35 (15') DISCHARGE RECOMMENDATION: Home with no PT services when medically appropriate for discharge. Pt would benefit from cardiac rehab program.
--- NOTE | 2024-07-27 16:10 | NUR.NOTE ---
Nursing Note: Patient called stating he did not have his losartan prescription. Called patient's pharmacy, [facility], who confirmed they did not have this prescription. Confirmed with [facility] pharmacy patient did receive his other discharge prescriptions. Notified TRACK SWEEPER Padmini Waddell, who stated she will order the missing losartan for the patient. [facility] pharmacy stated they can fill this medication now. Patient stated he is outside the pharmacy and will get it now.
== END 2024-07-26 14:00 | disposition home or self-care (01) | DRG 293 ==
LOC: ER 18:04 → ICU 18:20 → MS 07-24 16:02
PROVIDERS: Admitting Provider Internal Medicine; Emergency Provider Emergency Medicine; Visit Provider Internal Medicine
DX: I50.21 Acute systolic (congestive) heart failure (principal); F10.10 Alcohol abuse, uncomplicated; I48.91 Unspecified atrial fibrillation; K08.89 Other specified disorders of teeth and supporting structures; K42.9 Umbilical hernia without obstruction or gangrene; E66.01 Morbid (severe) obesity due to excess calories; R73.9 Hyperglycemia, unspecified; Z68.32 Body mass index [BMI] 32.0-32.9, adult; I49.8 Other specified cardiac arrhythmias; E27.8 Other specified disorders of adrenal gland
CPT/HCPCS: 00123; 36415; 71275; 80048; 80053; 85027; 87635; 93005; 93308; 96372; 96374; 97110; 97161; 97530; 99291; 71045; 82746; 83036; 83735; 83880; 84484; 85025; 85379; 93010; 93306; 99222; 99232; 99233; 99239; J0283; J1650; J1940; J3411; J3475; J3490

== ENCOUNTER 2024-08-13 21:04 | Outpatient (REF) | payer BC, SELFPAY ==
[2024-08-13 20:00] LABS: Abs Immature Grans 0.02 10^3/uL (0.0-0.06); Absolute Basophil Count 0.08 10^3/uL (0.0-0.2); Absolute Eosinophil Count 0.13 10^3/uL (0.0-0.7); Absolute Lymphocyte Count 1.51 10^3/uL (1.2-3.4); Absolute Monocyte Count 0.81 10^3/uL (0.1-0.8); Absolute Neutrophil Count 6.82 10^3/uL (1.2-6.7); Basophils % 0.9 %; Eosinophils % 1.4 %; HCT 55.3 % (40.0-50.0); HGB 18.4 g/dL (13.5-17.5); Immature Grans % 0.2 %; Lymphocytes % 16.1 %; MCH 32.5 pg (27.0-33.0); MCHC 33.3 % (32.0-36.0); MCV 98 fL (80-95); MPV 8.6 fL (8.0-11.0); Monocytes % 8.6 %; Neutrophils % 72.8 %; Platelet Count 349 10^3/uL (130-400); RBC 5.66 10^6/uL (4.36-5.78); RDW 11.9 % (11.8-14.1); RDW-SD 43.7 fL; WBC 9.37 10^3/uL (4.4-10.8)
[2024-08-13 20:14] LABS: ALT 41 U/L (16-63); AST 25 U/L (15-37); Albumin 3.8 g/dL (3.4-5.0); Alkaline Phosphatase 103 U/L (46-116); Anion Gap 11.1 mmol/L (3-11); BUN 19 mg/dL (7-18); Bilirubin, Total 0.54 mg/dL (0.2-1.0); CO2 24.9 mmol/L (21.0-32.0); CREATININE 1.1 mg/dL (0.70-1.30); Calcium 9.7 mg/dL (8.5-10.1); Chloride 105 mmol/L (98-107); Glucose 128 mg/dL (74-106); NT-proBNP 1720 pg/mL (<300); Potassium 4.8 mmol/L (3.5-5.1); Sodium 141 mmol/L (136-145)
--- OUTSIDE RECORDS SUMMARY | 2024-08-13 21:06 | XMS_ITS | Clinical Summary ---
Author Organization [facility] [place] [address] Care Team Providers Care Marketing And Promotions Manager Name Role Phone Anayeli Ricketts MD Primary Care Provider [phone] Allergies Active Allergy Reactions Criticality Noted Date Comments Hydrocodone CIS - Flare-Up of psoriasis Medications Medication Sig Dispensed Refills Start Date End Date Status OXYcodone (ROXICODONE) 5 mg immediate release tablet 05/13/2006 Active Encounters Date Type Department Care Team Description 08/05/2024 Transcribe Orders eDH Incoming Referrals [phone] Charline, Estefany Cummins, CYTOLOGY TEACHER Systolic CHF, acute; Atrial fibrillation with RVR 07/21/2024 4:30 PM EDT - 07/21/2024 11:59 PM EDT Hospital Encounter [place] [address] Cammie Watts MD Discharge Disposition: Home from Last 3 Months Immunizations Name Administration Dates Next Due Td Adult (not absorbed) 02/19/2006 Social History Tobacco Use Types Packs/Day Years Used Date Smoking Tobacco: Never Assessed Sex and Gender Information Value Date Recorded Sex Assigned at Not on file Gender Identity Not on file Sexual Orientation Not on file Plan of Treatment Health Maintenance Due Date Last Done Comments CT Colonography 1962 Colonoscopy 1962 Colorectal Cancer Screening 1962 FIT DNA 1962 FIT 1962 Sigmoidoscopy (10 year) with FIT yearly 1962 Sigmoidoscopy 1962 HIV screen 02/06/1980 Hepatitis C Screening 02/06/1980 Lipid Screening 02/06/1980 Tetanus/Diphtheria/Pertussis Vaccines (1 - Tdap) 02/2002/19/2006 Zoster vaccine (1 of 2) 02/06/2012 Advance Directive 2017 Covid-19 Vaccine ( season) 2024 Influenza (Flu) vaccine (1 o f 1 - Influenza standard series) 06/21/2024 Procedures Procedure Name Priority Date/Time Associated Diagnosis Comments ORDS - PROVIDER CARE SCAN 07/31/2024 12:00 AM EDT ECHO COMPLETE Routine 07/22/2024 9:15 AM EDT SOB (shortness of breath) ECG SCAN 07/21/2024 12:00 AM EDT ECG SCAN 07/21/2024 12:00 AM EDT DIAGNOSTIC RADIOLOGY SCAN 07/21/2024 12:[address] SCAN (SCAN) 07/21/2024 12:00 AM EDT from Last 3 Months Results * Scan Doc: Ords - Provider Care (07/31/2024 12:00 AM EDT) Narrative 07/31/2024 12:00 AM EDT Ordered by an unspecified provider. Scanning Provider MEDIA MGR SCAN EXT O RDR/RSLT * ECHO COMPLETE (07/22/2024 9:15 AM EDT) [facility] EF 30 HEARTLAB SYSTEM Anatomical Region Laterality Modality Other 07/21/2024 3:15 PM EDT Narrative 07/22/2024 11:33 AM EDT [address] [place] [address] ? Echocardiogram Report Name: JOSE MARTIN GONSALES ? Study Date: 07/21/2024 03:15 PMBP: 147/100 mmHg : 1960 ? Height: 180 cm ? Account: [id number] Age: 64 yrs ? Weight: 105 kg Gender: Male ?BSA: 2.2 m2 Ordering Physician: CAMMIE WATTS Referring Physician: CAMMIE WATTS Performed By: BRIDGETTE Reason For Study: SOB Exam Location: [facility]. Interpretation Summary The rhythm appears to be atrial fibrillation with rapid ventricular response, rates predominantly 120-140 bpm during the study. The left ventricle is normal in size with moderately reduced function in a pattern of global hypokinesis. The LVEF is visually estimated at 30-35% with mild beat-to- beat variability. The right ventricle is normal in size with mildly reduced function. The estimated PASP is 36 mmHg. The left atrium is probably normal in size. The right atrium is mildly dilated. There is [id number] tricuspid regurgitation. See body of report for further details. No prior study available for comparison. Procedure Complete-[id number]. Satisfactory quality. The rhythm is atrial fibrillation with an increased ventricular response. Left Ventricle Left ventricle is of normal size. Wall thickness is normal. Left ventricular systolic function is moderately reduced. Left ventricular ejection fraction is estimated visually at 30-35%. There are no segmental wall motion abnormalities. Moderate global hypokinesis. Right Ventricle The right ventricle is of normal size. Right ventricular systolic function is mildly decreased. The right ventricular free wall is hypokinetic. Left Atrium The left atrium is normal. No abnormality of the interatrial septum is identified. Right Atrium The right atrium is mildly dilated. Aortic Valve The aortic valve is tricuspid. There is no aortic stenosis. There is no aortic regurgitation. Mitral Valve The mitral valve is structurally normal. There is trace mitral regurgitation. Tricuspid Valve The tricuspid valve is structurally and functionally normal. There is mild to moderate tricuspid regurgitation. Pulmonic Valve The pulmonic valve appears to be structurally and functionally normal. There is trace pulmonic valve regurgitation. Great Arteries The diameter at the level of the sinuses of Valsalva is 3.5 cm. The maximum diameter of the ascending aorta is 3.7 cm. No abnormalities of the pulmonary artery are identified. Venous Inferior vena cava collapse greater than 50% with respiration. Inferior vena cava is dilated. Pericardium/Pleural The pericardium appears normal. Hemodynamics The estimated right atrial pressure is 8mmHg. The peak right ventricular systolic pressure is 36 mmHg. ? 2D Measurements ? Volumes ?IVSd: 1.1 cm ? LA Volume Index: ?LVIDd: 5.2 cm ?LVIDs: 4.4 cm ?30.8 ml/m2 ?LVPWd: 1.1 cm ?SV(LVOT): 48.7 ml ? LV Stroke Volume: 41.6 ml ?RWT: 0.42 {ratio} ?SI(LVOT): 21.7 ml/m2 ?LV mass(C)d: 218.5 grams ?LV mass(C)dI: 97.5 grams/m2 ?Ao root diam: 3.5 cm ?Ao root diam index: 1.6 ?asc Aorta Diam: 3.7 cm ?LVOT diam: 2.0 cm ?TAPSE_phl: 1.4 cm Doppler LV V1 VTI: 15.7 cm LVOT max Velocity: 115.6 cm/sec Ao V2 VTI: 21.7 cm Ao Max Abdiel: 146.9 cm/sec Ao valve max: 8.6 mmHg Ao valve mean: 4.4 mmHg MV E max abdiel: 113.6 cm/sec MV mean P.2 mmHg Lat Peak E' Abdiel: 11.7 cm/sec E/e' (lat): 9.7 Med Peak E' Abdiel: 9.2 cm/sec E/e' (med): 12.3 E/e' Average: 11.0 SEAN(I,D): 2.2 cm2 Dimensionless index Aov: 0.73 TR max abdiel: 263.3 cm/sec RVSP(TR): 30.9 mmHg I ?WMSI = 1.63 ? % Normal = 38 ?Segments ??Size X - Cannot ?2 - ?4 - ?1-2 ? small Interpret ?1 - Normal ?? Hypokinetic 3 - Akinetic Dyskinetic ?? 3-5 ? moderate 5 - ? 6-14 ?large Aneurysmal ?15-16 ?? diffuse Procedure Note Shakira Tiwari MD - 07/22/2024 [address] [place] [address] Echocardiogram Report Name: DRUJOSE MARTIN OROURKE Study Date:07/21/2024 03:15 PMBP: 147/100 mmHg : 1960 Height: 180 cm Account: [id number] Age: 64 yrs Weight: 105 kg Gender: Male BSA: 2.2 m2 Ordering Physician: CAMMIE WATTS Referring Physician: CAMMIE WATTS Performed By: BRIDGETTE Reason For Study: SOB Exam Location: [facility]. Interpretation Summary The rhythm appears to be atrial fibrillation with rapid ventricularresponse, rates predominantly 120-140 bpm during the study. The left ventricle is normal in size with moderately reduced function in apattern of global hypokinesis. The LVEF is visually estimated at 30-35% with mildbeat-to- beat variability. The right ventricle is normal in size with mildly reduced function. Theestimated PASP is 36 mmHg. The left atrium is probably normal in size. The right atrium is mildlydilated. There is [id number] tricuspid regurgitation. See body of report for further details. No prior study available forcomparison. Procedure Complete-[id number]. Satisfactory quality. The rhythm is atrial fibrillationwith an increased ventricular response. Left Ventricle Left ventricle is of normal size. Wall thickness is normal. Leftventricular systolic function is moderately reduced. Left ventricular ejectionfraction is estimated visually at 30-35%. There are no segmental wall motionabnormalities. Moderate global hypokinesis. Right Ventricle The right ventricle is of normal size. Right ventricular systolic functionis mildly decreased. The right ventricular free wall is hypokinetic. Left Atrium The left atrium is normal. No abnormality of the interatrial septum isidentified. Right Atrium The right atrium is mildly dilated. Aortic Valve The aortic valve is tricuspid. There is no aortic stenosis. There is noaortic regurgitation. Mitral Valve The mitral valve is structurally normal. There is trace mitralregurgitation. Tricuspid Valve The tricuspid valve is structurally and functionally normal. There is mildto moderate tricuspid regurgitation. Pulmonic Valve The pulmonic valve appears to be structurally and functionally normal.There is trace pulmonic valve regurgitation. Great Arteries The diameter at the level of the sinuses of Valsalva is 3.5 cm. Themaximum diameter of the ascending aorta is 3.7 cm. No abnormalities of thepulmonary artery are identified. Venous Inferior vena cava collapse greater than 50% with respiration. Inferiorvena cava is dilated. Pericardium/Pleural The pericardium appears normal. Hemodynamics The estimated right atrial pressure is 8mmHg. The peak right ventricularsystolic pressure is 36 mmHg. 2D Measurements Volumes IVSd: 1.1 cm LA VolumeIndex: LVIDd: 5.2 cm LVIDs: 4.4 cm 30.8 ml/m2 LVPWd: 1.1 cm SV(LVOT): 48.7ml LV Stroke Volume:41.6 ml RWT: 0.42 {ratio} SI(LVOT): 21.7ml/m2 LV mass(C)d: 218.5 grams LV mass(C)dI: 97.5 grams/m2 Ao root diam: 3.5 cm Ao root diam index: 1.6 asc Aorta Diam: 3.7 cm LVOT diam: 2.0 cm TAPSE_phl: 1.4 cm Doppler LV V1 VTI: 15.7 cm LVOT max Velocity: 115.6 cm/sec Ao V2 VTI: 21.7 cm Ao Max Abdiel: 146.9 cm/sec Ao valve max: 8.6 mmHg Ao valve mean: 4.4 mmHg MV E max abdiel: 113.6 cm/sec MV mean P.2 mmHg Lat Peak E' Abdiel: 11.7 cm/sec E/e' (lat): 9.7 Med Peak E' Abdiel: 9.2 cm/sec E/e' (med): 12.3 E/e' Average: 11.0 SEAN(I,D): 2.2 cm2 Dimensionless index Aov: 0.73 TR max abdiel: 263.3 cm/sec RVSP(TR): 30.9 mmHg I WMSI = 1.63 % Normal = 38 SegmentsSize X - Cannot 2 - 4 - 1-2small Interpret 1 - Normal Hypokinetic 3 - Akinetic Dyskinetic 3-5moderate 5 - 6-14large Aneurysmal 15-16diffuse Cammie Watts MD ECHO ORDERABLES * Scan Doc: CT Scan (07/21/2024 12:00 AM EDT) Anatomical Region Laterality Modality Other Narrative 07/21/2024 12:00 AM EDT Ordered by an unspecified provider. Scanning Provider MEDIA MGR SCAN EXT O RDR/RSLT * Scan Doc: Diagnostic Radiology (07/21/2024 12:00 AM EDT) Anatomical Region Laterality Modality Other Narrative 07/21/2024 12:00 AM EDT Ordered by an unspecified provider. Scanning Provider MEDIA MGR SCAN EXT O RDR/RSLT * Scan Doc: ECG (07/21/2024 12:00 AM EDT) Only the most recent of2 resultswithin the time period is included. Narrative 07/21/2024 12:00 AM EDT Ordered by an unspecified provider. Scanning Provider MEDIA MGR SCAN EXT O RDR/RSLT from Last 3 Months Care Teams Marketing And Promotions Manager Relationship Specialty Start Date End Date Anayeli Ricketts MD [address] [place] [address] PCP - General 09/12/10
--- OUTSIDE RECORDS SUMMARY | 2024-08-13 21:06 | XMS_ITS | Encounter Summary ---
Author Organization [facility] Address [facility] [place] [address] Care Team Providers Care Employee Services Manager Name Role Phone Anayeli Ricketts MD Primary Care Provider [phone] Reason for Referral * Consultation (Urgent) - Authorized Specialty Diagnoses / Procedures Referred By Contac t Referred To Contact Cardiology Diagnoses Systolic CHF, acute Atrial fibrillation with RVR CHF vs GenCard? S/P ED @[facility] acute HFpEF EF 30-35% & new Afib w/ RVR. Estefany Olivier APRN [address] [place] [address] Estefany Love MD [facility] [place] [address] Referral ID Status Reason Start Date Expiration Date Visits Requested Visits Authorized [id number] Authorized Consult, Test & Treat PCP Updated and/or Approved 08/05/2025 1 1 Encounter Details Date Type Department Care Team (Late st Contact Info) Description 08/05/2024 Transcribe Orders eDH Incoming Referrals [phone] Estefany Olivier APRN [address] [place] [address] Systolic CHF, acute; Atrial fibrillation with RVR Social History Tobacco Use Types Packs/Day Years Used Date Smoking Tobacco: Never Assessed Sex and Gender Information Value Date Recorded Sex Assigned at Not on file Gender Identity Not on file Sexual Orientation Not on file documented as of this encounter Plan of Treatment Scheduled Referrals Name Type Priority Associated Diagnoses Orde r Schedule Referral to Cardiology Outpatient Referral Routine Systolic CHF, acute Atrial Fibrillation With Rvr Ordered: 08/05/2024 documented as of this encounter Visit Diagnoses Diagnosis Systolic CHF, acute Acute systolic heart failure Atrial fibrillation with RVR Atrial fibrillation documented in this encounter Care Teams Employee Services Manager Relationship Specialty Start Date End Date Anayeli Ricketts MD [address] [place] [address] PCP - General 09/12/10 documented as of this encounter
--- OUTSIDE RECORDS SUMMARY | 2024-08-13 21:06 | XMS_ITS | Encounter Summary ---
Author Organization [facility] [place] [address] Care Team Providers Care Piano Machine Operator Name Role Phone Anayeli Ricketts MD Primary Care Provider [phone] Reason for Visit * Diagnostic Test (Routine) - Closed Specialty Diagnoses / Procedures Referred By Contac t Referred To Contact Cardiology Diagnoses SOB (shortness of breath) Procedures Mobile Echo Cammie Watts MD [address] [place] [address] [place] [address] [facility] [place] [address] Referral ID Status Reason Start Date Expiration Date V isits Requested Visits Authorized [id number] Closed Specialty Service Requested 07/22/2024 07/22/2025 1 1 Encounter Details Date Type Department Care Team (Latest Contact Info) Description 07/21/2024 4:30 PM EDT - 07/21/2024 11:59 PM EDT Hospital Encounter [place] [address] Cammie Watts MD [address] [place] [address] [place] [address] Discharge Disposition: Home Social History Tobacco Use Types Packs/Day Years Used Date Smoking Tobacco: Never Assessed Sex and Gender Information Value Date Recorded Sex Assigned at Not on file Gender Identity Not on file Sexual Orientation Not on file documented as of this encounter Medications at Time of Discharge Medication Sig Dispensed Refills Start Date End Date OXYcodone (ROXICODONE) 5 mg immediate release tablet 05/13/2006 documented as of this encounter Plan of Treatment Not on file documented as of this encounter Procedures Procedure Name Priority Date/Time Associated Diagnosis Comments ECHO COMPLETE Routine 07/22/2024 9:15 AM EDT SOB (shortness of breath) documented in this encounter Results * ECHO COMPLETE (07/22/2024 9:15 AM EDT) EF 30 HEARTLAB SYSTEM Anatomical Region Laterality Modality Other 07/21/2024 3:15 PM EDT Narrative 07/22/2024 11:33 AM EDT [address] [place] [address] ? Echocardiogram Report Name: JOSE MARTIN GONSALES ? Study Date: 07/21/2024 03:15 PMBP: 147/100 mmHg : 1960 ? Height: 180 cm ? Account: [id number] Age: 64 yrs ? Weight: 105 kg Gender: Male ?BSA: 2.2 m2 Ordering Physician: CAMMIE WATTS Referring Physician: CAMMIE WATTS Performed By: BRIDGETTE Reason For Study: SOB Exam Location: [facility]. Interpretation Summary The rhythm appears to be [...] right atrium is mildly dilated. There is [id number] tricuspid regurgitation. See body of report for further details. No prior study available for comparison. Procedure Complete-[id number]. Satisfactory quality. The rhythm is atrial fibrillation [...] Note Shakira Tiwari MD - 07/22/2024 [address] [place] [address] Echocardiogram Report Name: JOSE MARTIN GONSALES Study Date:07/21/2024 03:15 PMBP: 147/100 mmHg : 1960 Height: 180 cm Account: [id number] Age: 64 yrs Weight: 105 kg Gender: Male BSA: 2.2 m2 Ordering Physician: CAMMIE WATTS Referring Physician: CAMMIE WATTS Performed By: BRIDGETTE Reason For Study: SOB Exam Location: [facility]. Interpretation Summary The rhythm appears to be [...] The right atrium is mildlydilated. There is qzqu-[id number]-mjlpvddq tricuspid regurgitation. See body of report for further details. No prior study available forcomparison. Procedure Complete-[id number]. Satisfactory quality. The rhythm is atrial fibrillationwith [...] Aneurysmal 15-16diffuse Cammie Watts MD ECHO ORDERABLES documented in this encounter Visit Diagnoses Not on filedocumented in this encounter Care Teams Piano Machine Operator Relationship Specialty Start Date End Date Anayeli Ricketts MD [address] [place] [address] PCP - General 09/12/10 documented as of this encounter
== END 2024-08-13 21:05 | disposition home or self-care (01) ==
LOC: LBN 21:04
PROVIDERS: PCP Nurse Practitioner Family; Visit Provider Physician Assistant
DX: R06.02 Shortness of breath (principal); I48.91 Unspecified atrial fibrillation; I50.21 Acute systolic (congestive) heart failure
CPT/HCPCS: 80053; 83880; 85025

== ENCOUNTER 2024-12-07 23:40 | Emergency (ER) | payer OTHER, SELFPAY ==
--- NOTE | 2024-12-07 23:30 | RT.EKG_ITS ---
APPROVED REPORT Exam: Resting ECG Reason for Exam: dizzy, lightheaded Patient Location: E HR:78 bpm ECG Measurements Heart Rate 78 AXIS PA 184 P 51 QRSd 107 QRS 268 QT 404 T 69 QTc 461 Conclusion Sinus rhythm...normal P axis, V-rate 60- 99 Inferior infarct, old...Q >35mS, II III aVF no ST segment or T wave abnormalities to suggest occlusive ND
[2024-12-07 23:39] VITALS: BP 166/76; PULSE 84; RESP 22; TEMP 36.6; O2SAT 96
[2024-12-07 23:49] VITALS: PULSE 75; PULSE 77; RESP 17; O2SAT 96
[2024-12-07 23:50] VITALS: PULSE 77; RESP 20; O2SAT 95
[2024-12-07 23:51] VITALS: RESP 18
[2024-12-08] VITALS (20 sets, daily range): BP systolic 125–169; BP diastolic 58–77; PULSE 64–82; RESP 14–23; O2SAT 93–95
--- NOTE | 2024-12-08 00:37 | ED.GENADUL_ITS ---
Discharge Plan Disposition Patient Disposition: Home Condition: Good Discharge Details Clinical Impression: Light-headed, Sprain and strain of right wrist Primary Care Provider: Estefany Olivier ED Provider: Allyn Eckert Home Meds and New Rx's Prescriptions: Continued clotrimazole 1 % cream 1 applic topical BID 28 Days Qty: 45 3RF Rx Instructions: Apply to affected area twice daily for 4 weeks, arm pits and groin. apixaban 5 mg tablet 5 mg PO BID metoprolol succinate 25 mg capsule,sprinkle,ER 24hr 25 mg PO .PM losartan 50 mg tablet 50 mg PO DAILY Qty: 90 3RF furosemide 20 mg tablet 20 mg PO BID Qty: 180 1RF multivitamin [Multiple Vitamins] Tablet 1 tab PO DAILY 360 Days Qty: 360 0RF amiodarone [Pacerone] 200 mg tablet 200 mg PO QDAY Qty: 90 1RF potassium chloride 20 mEq tablet extended release 20 meq PO BID Qty: 60 0RF Discharge Instructions Instructions: Wrist Sprain ED, Dizziness, Adult ED Additional Instructions: Tylenol and ibuprofen for wrist pain. Wear the harleen wrap if you find it helpful. Call your primary care doctor in the morning to schedule an appointment for within the next 48 hours to followup on your visit here. Return to the emergency department for new or worsening symptoms including chest pain, shortness of breath, if your symptoms worsen, if you pass out, or if you have any other concerns. Referrals: Estefany Olivier NP [Primary Care Provider] - [facility] General Mode of arrival: EMS . Date/Time Provider Initiated Documentation: 12/07/24 23:47 . Limitations to Documentation: no limitations . Information obtained by: patient . HPI Narrative: 64yo M with hx afib, CHF, presenting via EMS for lightheadedness x 2 hours. Symptoms started at rest. Feels like he might pass out. Gets better when he lays down. No chest pain or shortness of breath at any point. Had not lost consciousness. No falls. Has felt similar in the past when having issues with his afib. No nausea, vomiting, or abdominal pain. No numbness, tingling, or weakness. No worsening LE edema. No MERAZ. Requesting evaluation of his right hand which he injured at work today; was holding a ~40lb sign which was 'taken by the wind' and he twisted his right hand while trying to hold on to it and avoid it striking his face. Since then his wrist has hurt particularly with movement. Otherwise in his usual state of health with no fevers, chills, rash, or other concerns. Related Data Home Medications ?Medication ?Instructions ?Recorded ?Confirmed clotrimazole 1 % topical cream 1 applic topical BID cutaneous 07/31/24 12/08/24 mitch 4 weeks #45 grams multivitamin (Multiple Vitamins 1 tab PO DAILY 12 months #360 tabs 10/20/24 12/08/24 tablet) amiodarone 200 mg tablet (Pacerone) 200 mg PO QDAY #90 tabs 11/12/24 12/07/24 apixaban 5 mg tablet 5 mg PO BID 11/19/24 12/07/24 furosemide 20 mg tablet 20 mg PO BID #180 tabs 11/19/24 12/08/24 losartan 50 mg tablet 50 mg PO DAILY #90 tabs 11/19/24 12/08/24 metoprolol succinate 25 mg capsule 25 mg PO .PM 11/19/24 12/08/24 sprinkle, ext. release 24 hr potassium chloride 20 mEq 20 meq PO BID #60 tabs 11/24/24 12/08/24 tablet,extended release Previous Rx's ?Medication ?Instructions ?Recorded clotrimazole 1 % topical cream 1 applic topical BID cutaneous 07/31/24 mitch 4 weeks #45 grams multivitamin (Multiple Vitamins 1 tab PO DAILY 12 months #360 tabs 10/20/24 tablet) amiodarone 200 mg tablet (Pacerone) 200 mg PO QDAY #90 tabs 11/12/24 furosemide 20 mg tablet 20 mg PO BID #180 tabs 11/19/24 losartan 50 mg tablet 50 mg PO DAILY #90 tabs 11/19/24 potassium chloride 20 mEq 20 meq PO BID #60 tabs 11/24/24 tablet,extended release Allergies Allergy/AdvReac Type Severity Reaction Status Date / Time No Known Allergies Allergy Unverified 12/07/24 23:43 General Stated Complaint: Dizzy/Sync ELVIA: 3 Review of Systems Narrative: see HPI Exam Narrative Exam Narrative: General: Alert, well appearing, well nourished, in no acute distress. Head: Normocephalic, atraumatic Neck: Trachea midline, ?Neck supple. ENT: ?MMM.? No oropharygeal lesions or exudate. Cardiac: ?RRR, no murmurs appreciated Resp: No respiratory distress. CTAB. Abd: ?Soft, non-distended, nontender Extremities: ?No deformities.? No peripheral edema. Right hand and wrist with no bony tenderness includign no snuffbox tenderness. Skin normal. Sensation to light touch intact throughout. Brisk capillary refill. Pulses intact. Pain with passive and active extension at risk. Neurologic: GCS 15. ? Moves all extremities freely against gravity Course Vital Signs Vital signs: Vital Signs Temperature 36.6 C 12/07/24 23:39 Pulse 84 12/07/24 23:39 Respiratory Rate 22 12/07/24 23:39 Blood Pressure 166/76 H 12/07/24 23:39 Pulse Oximetry 96 12/07/24 23:39 Temperature 36.6 C 12/07/24 23:39 Temperature Source Temporal Artery Scan 12/07/24 23:39 Pulse 78 12/08/24 00:20 Pulse 77 12/08/24 00:20 Respiratory Rate 16 12/08/24 00:16 Respiratory Effort Normal, Non-Labored 12/07/24 23:51 Respiratory Depth Normal 12/07/24 23:51 Respiratory Pattern Normal 12/07/24 23:51 Blood Pressure 128/63 12/08/24 00:16 Blood Pressure Mean 85 12/08/24 00:16 Blood Pressure Position Sitting 12/07/24 23:39 Pulse Oximetry 95 12/08/24 00:20 Oxygen Delivery Method Room Air 12/07/24 23:39 Oxygen Flow Rate 0 12/07/24 23:39 Pain Level 0 12/07/24 23:39 Medical Decision Making 64yo M with hx afib, CHF, presenting via EMS for lightheadedness x 2 hours. Symptoms started at rest, gets better when he lays down. No chest pain or shortness of breath at any point. Not vertiginous. Similar symptoms in the past in the past when having issues with his afib. Normal blood glucose for EMS. Slightly hypertensive on arrival SBP 160's, vital signs otherwise reassuring. Unremarkable physical exam. Not suggestive of sepsis, pulmonary embolism, severe volume depletion, CVA. Will get labs, EKG, monitor on telemetry, orthostatic vital signs. -EKG NSR, no ST segment or T wave abnormalities to suggest occlusive MA. -Orthostatic vital signs normal -Labs reviewed as below, CBC with no leukocytosis or anemia, CMP with normal electrolytes and no hypoglycemia and no actionable abnormalities, Mg normal, BNP ~500 not suggestive of worsening heart failure, troponin 10, 10 (would not further pursue ACS/trend troponins/admit). He is also requesting eval of his right hand after work related injury; twisted hand/wrist while holding heavy sign. In HARLEEN bandage on arrival No bony tenderness on exam, mild pain with extension at wrist. Moves hand, wrist, and elbow freely in all directions. Good strength wrist and all digits. Exam and described mechanism consistent with strain/sprain; advised to continue using HARLEEN wrap and encouraged PCP followup. No indication for imaging at this time. On reassessment he remains well appearing with reassuring vital signs. Unremarkable telemetry. Ambulated steadily independently. Unclear etiology of lightheadedness but with reassuring workup, appropriate for PCP followup. Advised to discuss his BP at that visit which is persistently high here today 160's/70's. Discharged home; discharge instructions and return precautions were reviewed with patient who verbalized understanding. All questions were answered and he is in full agreement with the plan. Lab Data Lab results reviewed: Yes I reviewed the patient's lab results. Labs: Laboratory Tests Range/Units 12/07/24 12/08/24 23:48 00:43 WBC (4.4-10.8) 10^3/uL 9.03 RBC (4.36-5.78) 10^6/uL 4.18 L Hgb (13.5-17.5) g/dL 14.2 Hct (40.0-50.0) % 40.7 MCV (80-95) fL 97 H MCH (27.0-33.0) pg 34.0 H MCHC (32.0-36.0) % 34.9 RDW (11.8-14.1) % 12.5 Plt Count (130-400) 10^3/uL 316 MPV (8.0-11.0) fL 8.4 Immature Gran % % 0.7 Neutrophils % % 70.3 Lymphocytes % % 18.9 Monocytes % % 7.4 Eosinophils % % 2.1 Basophils % % 0.6 Nucleated RBC % (0.0-0.3) % 0.0 Absolute Neutrophils (1.2-6.7) 10^3/uL 6.35 Absolute Lymphocytes (1.2-3.4) 10^3/uL 1.71 Absolute Monocytes (0.1-0.8) 10^3/uL 0.67 Absolute Eosinophils (0.0-0.7) 10^3/uL 0.19 Absolute Basophils (0.0-0.2) 10^3/uL 0.05 Sodium (136-145) mmol/L 140 Potassium (3.5-5.1) mmol/L 3.5 Chloride (98-107) mmol/L 104 Carbon Dioxide (21.0-32.0) mmol/L 30.1 Anion Gap (3-11) mmol/L 5.9 BUN (7-18) mg/dL 15 Creatinine (0.70-1.30) mg/dL 0.9 Est GFR (CKD-EPI 2020) (mL/min/1.73m2) 96.57 Glucose (74-106) mg/dL 146 H Calcium (8.5-10.1) mg/dL 8.8 Magnesium (1.8-2.4) mg/dL 2.1 Total Bilirubin (0.2-1.0) mg/dL 0.43 AST (15-37) U/L 23 ALT (16-63) U/L 36 Alkaline Phosphatase (46-116) U/L 90 Troponin I (<or=76) ng/L 10 10 NT-Pro-B Natriuret Pep (<300) pg/mL 562 H Total Protein (6.4-8.2) g/dL 7.3 Albumin (3.4-5.0) g/dL 3.2 L Ethyl Alcohol (<10) mg/dL 9.6 Quality:SDOH Health Related Social Needs: No Data to Display PFSH All Active Problems (Updated 12/08/24 @ 01:45 by Allyn Eckert MD) Sprain and strain of right wrist (Acute) Light-headed (Acute) Arrhythmia (Acute) Morbid obesity (Acute) Umbilical hernia without obstruction and without gangrene (Acute) Poor dentition (Acute) Alcohol abuse (Chronic) Adrenal nodule (Acute) Acute HFrEF (heart failure with reduced ejection fraction) (Acute) Atrial fibrillation with RVR (Acute) Family History (Updated 11/04/24 @ 15:02 by Asuncion Colon RN) Father Heart disease VALVE REPLACEMENT Sister , at 33 yoa Neoplasm CERVICAL Maternal Grandfather Cancer Social History (Updated 11/19/24 @ 17:29 by Jody Horton) Smoking/Tobacco Use Status: Current every day Tobacco Type: cigarettes Tobacco: How many years used: 30 Quit status: has quit before Second Hand Exposure: Yes Smoking risk assessment performed?: Yes Alcohol Intake: current Alcohol Intake frequency: 3 or more drinks per day Alcohol type: beer Details: 7 days a week, 5 a day no more 6 or more drinks monthly or less Drug use: Current Sobriety Substance use type: marijuana Adopted: No Caregiver/Support person: No Household members: none Housing: apartment Number of Children: 0 number of grandchildren: 0 Communication Needs: None Education Level: high school Do you need help understanding health information?: Always 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 Sexually active: Yes Do you think of yourself as: straight/heterosexual Current gender identity: male What is your relationship status?: don't know How often do you talk on the phone with friends or family?: three or more times per week How often do you get together with friends or relatives?: once per week How often do you attend episcopal or tenriism services?: decline to answer Do you belong to any clubs or organized social groups?: no Panel score (0-1 are the most socially isolated patients): 1 NHANES result reviewed/action taken: Yes What type of physical activity do you participate in: regular exercise and other Details: push ups Duration: 15-30 minutes/day Frequency: daily Seatbelt use: always Drive intox or ride w/intox truck driver helper: No Firearms in home: No Do you feel safe at home: Yes Do you feel safe in your relationship?: Yes Victim of physical abuse: No Victim of emotional abuse: No Victim of sexual abuse: No Would you like helpful sources: No
[2024-12-08 00:44] LABS: Abs Immature Grans 0.06 10^3/uL (0.0-0.06); Absolute Basophil Count 0.05 10^3/uL (0.0-0.2); Absolute Eosinophil Count 0.19 10^3/uL (0.0-0.7); Absolute Lymphocyte Count 1.71 10^3/uL (1.2-3.4); Absolute Monocyte Count 0.67 10^3/uL (0.1-0.8); Absolute Neutrophil Count 6.35 10^3/uL (1.2-6.7); Basophils % 0.6 %; Eosinophils % 2.1 %; HCT 40.7 % (40.0-50.0); HGB 14.2 g/dL (13.5-17.5); Immature Grans % 0.7 %; Lymphocytes % 18.9 %; MCHC 34.9 % (32.0-36.0); MCV 97 fL (80-95); MPV 8.4 fL (8.0-11.0); Monocytes % 7.4 %; Neutrophils % 70.3 %; Platelet Count 316 10^3/uL (130-400); RBC 4.18 10^6/uL (4.36-5.78); RDW 12.5 % (11.8-14.1); RDW-SD 44.7 fL; WBC 9.03 10^3/uL (4.4-10.8)
[2024-12-08 01:07] LABS: ALT 36 U/L (16-63); Albumin 3.2 g/dL (3.4-5.0); Alkaline Phosphatase 90 U/L (46-116); Anion Gap 5.9 mmol/L (3-11); BUN 15 mg/dL (7-18); Bilirubin, Total 0.43 mg/dL (0.2-1.0); CO2 30.1 mmol/L (21.0-32.0); CREATININE 0.9 mg/dL (0.70-1.30); Calcium 8.8 mg/dL (8.5-10.1); Chloride 104 mmol/L (98-107); ETHANOL BLOOD 9.6 mg/dL (<10); Estimated GFR 96.57 (mL/min/1.73m2); Glucose 146 mg/dL (74-106); Magnesium 2.1 mg/dL (1.8-2.4); NT-proBNP 562 pg/mL (<300); Potassium 3.5 mmol/L (3.5-5.1); Sodium 140 mmol/L (136-145); Total Protein 7.3 g/dL (6.4-8.2); Troponin I 10 ng/L (<or=76)
[2024-12-08 01:07] LABS: Troponin I 10 ng/L (<or=76)
[2024-12-08 01:22] LABS: AST 23 U/L (15-37)
== END 2024-12-08 03:12 | disposition home or self-care (01) ==
PROVIDERS: Emergency Provider Student in an Organized Health Care Education/Training Program; PCP Nurse Practitioner Family
DX: R42 Dizziness and giddiness (principal); S63.501A Unspecified sprain of right wrist, initial encounter; X58.XXXA Exposure to other specified factors, initial encounter; I48.91 Unspecified atrial fibrillation; I50.9 Heart failure, unspecified
CPT/HCPCS: 36415; 80053; 93005; 99284; 80320; 83735; 83880; 84484; 85025; 93010

== ENCOUNTER 2024-12-23 01:54 | Outpatient (CLI) | payer OTHER, SELFPAY ==
--- NOTE | 2024-12-23 07:11 | DI.MRI_ITS ---
Exam(s) MR ABDOMEN WO/W EXAM: MR ABDOMEN WO/W CLINICAL HISTORY: adrenal mass seen on CT,e27.8 TECHNIQUE: Multiplanar multisequence MRI was performed with both pre and post contrast infused seque nces. Contrast injected sequences were performed following IV injection of 20 cc of Dotarem. COMPARISON: CT CT CHEST PE CTA from 07/21/2024 FINDINGS: Sequences of this study are degraded by respiratory motion artifact. VISUALIZED LUNG BASES: No pleural effusions evident. Previously present pleural effusions seen on CT scan of 07/21/2024 have resolved. There is no ascites evident in the upper abdomen. The ascites which was evident on the CT scan of is no longer seen. STOMACH: There is a posteriorly located gastric fundal diverticulum measuring 3 by 2.8 cm which parti ally obscures the left adrenal gland. This is made worse by the amount of motion artifact here. LIVER: There are no discrete focal hepatic lesions. Is mild steatosis of the liver. BILIARY: Gallbladder size is normal. There is a tiny density in the gallbladder which is either a po lyp or tiny gallstone measuring approximately 2-3 mm. The gallbladder wall is not edematous. The CB D diameter is normal. There are no obvious calculi seen in the CBD. PANCREAS: There is no evidence of pancreatic mass nor dilatation of the pancreatic duct. SPLEEN: Spleen is not enlarged and there are no intrasplenic lesions.Splenic and portal veins are pat ent ADRENALS: The right adrenal gland is unremarkable. The left adrenal gland is partially obscured by t he above described gastric diverticulum coming off the posterior aspect of the gastric fundus. There is, however, subtle suggestion of possible 1.5 cm nodule in the gland which is difficult to evaluate because of the amount of motion artifact. The limbs of the left adrenal gland are also somewhat spl ayed apart by fat tissue. KIDNEYS: No solid renal masses. No hydronephrosis.No significant cysts. ABDOMINAL AORTA: Not enlarged and there is no significant para-aortic adenopathy. ANTERIOR ABDOMINAL WALL/GI: There is an anterior abdominal wall midline supraumbilical hernia. Herni a sac measures approximately 3.7 cm wide by 2.7 cm AP and does not contain bowel loops.There is no ev idence of bowel obstruction. OSSEOUS: There are no lytic osseous lesions in the field of view of this study. IMPRESSION: 1. All sequences of this study are degraded by motion artifact. 2. There is a single tiny density in the gallbladder measuring approximately 2-3 mm which is either a tiny gallstone or polyp. There is no evidence of cholecystitis nor significant dilatation of the bi liary tree. 3. With respect to the left adrenal gland, this is a suboptimal study because of a combination of res piratory motion artifact plus the fact that there is a prominent posterior duodenal diverticulum comi ng off of the posterior aspect of the gastric fundus and partially obscuring the left adrenal gland. Nevertheless, there is slight thickening of the left adrenal gland evident. There does not appear t o be a large mass. Chemical shift imaging in and out of phase imaging is less than optimal because o f the motion artifact here. Appropriate follow-up would be repeat imaging in 6 months, preferably wi th CT scan. The will be significantly less motion artifact on the CT scan due to significantly decre ased image acquisition time when compared to MRI. DATA REPOSITORY:
[2024-12-23] MEDS: Gadoterate meglumine 20 ML VIAL IVP (10:09)
== END 2024-12-23 02:14 ==
PROVIDERS: PCP Nurse Practitioner Family; Referring Provider Family Medicine; Visit Provider Nurse Practitioner Family
DX: E27.8 Other specified disorders of adrenal gland (principal)
CPT/HCPCS: 74183

== ENCOUNTER 2024-12-23 11:25 | Outpatient (CLI) | payer OTHER, SELFPAY ==
[2024-12-23 11:15] LABS: HCT 44.3 % (40.0-50.0); HGB 15.6 g/dL (13.5-17.5); MCH 33.5 pg (27.0-33.0); MCHC 35.2 % (32.0-36.0); MCV 95 fL (80-95); MPV 8.1 fL (8.0-11.0); Platelet Count 294 10^3/uL (130-400); RBC 4.65 10^6/uL (4.36-5.78); RDW 12.2 % (11.8-14.1); RDW-SD 42.4 fL; WBC 7.63 10^3/uL (4.4-10.8)
[2024-12-23 11:32] LABS: Hemoglobin A1C 5.5 % (<5.7)
[2024-12-23 11:58] LABS: ALT 35 U/L (16-63); AST 21 U/L (15-37); Albumin 3.5 g/dL (3.4-5.0); Alkaline Phosphatase 96 U/L (46-116); Anion Gap 6.7 mmol/L (3-11); BUN 14 mg/dL (7-18); Bilirubin, Total 0.51 mg/dL (0.2-1.0); CO2 29.3 mmol/L (21.0-32.0); CREATININE 1.1 mg/dL (0.70-1.30); Calcium 9.1 mg/dL (8.5-10.1); Calculated LDL 82 mg/dL (<100); Chloride 107 mmol/L (98-107); Cholesterol 171 mg/dL (<200); Glucose 102 mg/dL (74-106); HDL Cholesterol 64 mg/dL (>or=40); Potassium 4.3 mmol/L (3.5-5.1); Sodium 143 mmol/L (136-145); TSH (W/Ref FT4) 2.62 uIU/mL (0.36-3.74); Total Protein 7.7 g/dL (6.4-8.2); Triglyceride 127 mg/dL (<150)
[2024-12-23 18:27] LABS: PSA, Screening 1.7 ng/mL (<=4.5)
== END 2024-12-23 11:26 | disposition home or self-care (01) ==
LOC: LBO 11:25
PROVIDERS: PCP Nurse Practitioner Family; Visit Provider Nurse Practitioner Family
DX: R73.9 Hyperglycemia, unspecified (principal); Z12.5 Encounter for screening for malignant neoplasm of prostate
CPT/HCPCS: 36415; 80053; 80061; 84153; 85027; 83036; 84443

== ENCOUNTER 2025-07-22 04:18 | Outpatient (CLI) | payer MEDICAID, SELFPAY ==
--- NOTE | 2025-07-22 06:48 | DI.CT_ITS ---
Exam(s) CT ABDOMEN WO/W EXAM: CT ABDOMEN WO/W CLINICAL HISTORY: Re-peat imaging,6 MO F/U,ADRENAL NODULE,E27.9. TECHNIQUE: Imaging Protocol: Axial computed tomography images with coronal and sagittal reformatted images were created and reviewed CONTRAST MATERIAL: Intravenous: Omnipaque 350 Contrast volume:75 ml Oral: / no COMPARISON: CT CT CHEST PE CTA from 07/21/2024 MR MR ABDOMEN WO/W from 12/23/2024 FINDINGS: ABDOMEN: Lung Bases: No acute findings. Liver: Normal density. No measurable mass. Gallbladder and biliary tract: No radiodense calculus. No biliary dilation. Pancreas: Normal density, no abnormal calcifications or inflammatory process. Spleen: Normal. Kidneys: Normal size, contour and axis. No radiodense stones or obstructive uropathy. No suspicious masses seen. Adrenal glands: The adrenal glands are well visualized on the current study. There is no evidence of a left adrenal mass. The right adrenal gland also appears normal. There is a diverticulum of the posterior fundus of the stomach again noted which approaches the superior aspect of the left adrenal gland. Bowel: Diverticulum of the posterior fundus of the stomach is again noted. There is no abnormal small bowel dilatation. The colon contains a normal quantity of stool. Abdominal Aorta: Abdominal portion non-dilated. Minimal atherosclerotic calcifications. Lymph nodes: Within normal limits. Bones: Degenerative changes in the spine, greatest at L4-5 and L5-S1. Soft tissues: There is a small fatty hernia above the level of the umbilicus. IMPRESSION: No evidence of left adrenal mass. 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 RADIATION DOSE DELIVERED: Total DLP DATA REPOSITORY: All CT scans at this facility are submitted to the National Radiology Data Registry (NRDR) Dose Index Registry (DIR) with the [employer] (ACR). RADIATION OPTIMIZATION: All CT scans at this facility use at least one of these dose optimization techniques: automated exposure control; mA and/or kV adjustment per patient size (includes targeted exams where dose is matched to clinical indication); or iterative reconstruction.
[2025-07-22 09:24] LABS: Estimated GFR 84.57 (mL/min/1.73m2)
[2025-07-22] MEDS: Normal Saline - Diluent 50 ML VIAL IJ (10:16)
[2025-07-22] MEDS: Normal Saline Flush 10 ML SYR IVP (10:17)
[2025-07-22] MEDS: Omnipaque 350 MG/ML 500 ML BTL-Imaging package IJ (10:17)
== END 2025-07-22 04:38 ==
PROVIDERS: PCP Nurse Practitioner Family; Visit Provider Nurse Practitioner Family
DX: K31.4 Gastric diverticulum (principal)
CPT/HCPCS: 74170; 82565